=== PATIENT | male | born 1950 | race Caucasian/White ===

== ENCOUNTER 2017-05-20 19:07 | Inpatient (IN) | payer OTHER ==
[~2017-05-20] VITALS: Ht 175.3 cm; Wt 68.9 kg
[~2017-05-20 19:07] MED LIST: ATORVASTATIN CA40 MG PO; DILANTIN100 M1 PO; DILANTIN100 MG PO; Ecotrin PO; HEPARIN 2525000 UNI1 IV; LISINOPRIL10 MG PO; LOPRESSOR 25MG25 MG PO; NITROSTAT 0.4MG1 BO2 SL; Nitro-Bid TOP; PLAVIX 75MG TAB75 MG PO
--- NOTE | 2017-05-20 19:23 | ED SYNCOPE COMPLAINT ---
History of Present Illness General Chief Complaint: General Adult Stated Complaint: BIBA FALL W ?SEIZURE Source: patient, old records, EMS Exam Limitations: confusion Vital Signs & Intake/Output Vital Signs & Intake/Output Vital Signs Date Time Temp Pulse Resp B/P B/P Pulse O2 O2 Flow FiO2 Mean Ox Delivery Rate 05/20 1930 93 Nasal 2.0L Cannula 05/20 1911 99.0 105 18 144/78 Allergies Coded Allergies: NO KNOWN ALLERGIES (04/22/14) Reconcile Medications Atorvastatin Calcium (Lipitor) 40 MG TABLET 1 TAB PO DAILY CHOLESTROL Clopidogrel Bisulfate (Plavix) 75 MG TABLET 1 TAB PO DAILY ACS [Ecotrin] 325 MG PO DAILY [facility] Heparin (Heparin-1/2NS 25,000 Units/500) 25,000 UNIT/500 ML IV.SOLN 25,000 UNIT IV Q24H ACS Start infusion @ 12 units/Kg/hour ( max dose 1000 units) adjust infusion rate to keep aPTT 1.5-2 times control (usually 50-70) Lisinopril 10 MG TABLET 1 TAB PO DAILY PRN BLOOD PRESSURE Metoprolol Tartrate (Lopressor) 25 MG TABLET 1 TAB PO BID BLOOD PRESSURE [Nitro-Bid] 1 GM TOP Q6 Nitroglycerin (Nitrostat 0.4MG S\\L Tab) 0.3 MG TAB.SUBL 0.4 MG SL Q 5 MINUTES X 3 DOSE PRN PAIN 4-10 OR RESP RATE > 20 PHENYTOIN SODIUM EXTENDED (Dilantin) 100 MG CAPSULE 200 MG PO QAM SEIZURES ( Reported) NEEDS DOSE AFTER PROCEDURE, CAN NOT TAKE ON EMPTY STOMACH PHENYTOIN SODIUM EXTENDED (Dilantin) 100 MG CAPSULE 100 MG PO QPM SEIZURES ( Reported) Triage Note: PT BIBA FROM HOME. PER EMS PT'S DAUGHTER TAKLED TO PT ON THE PHONE AND HE SEEMED "OUT OF IT" TO HER, AND HE ADMITTED TO HER THAT HE FELL, SO SHE CALLED 911. PT NOTED TO HAVE BLOOD ON LIP, STATES HE BIT HIS TONGUE. PT HAS HX SEIZURE. IS AOX3, ON 2L O2 AT THIS TIME. REPORTS LOW BACK PAIN 10/10. DOES NOT RECALL EVENTS OF FALL. SLOW SPEECH. EQUAL HAND GRASPS, NO FACIAL DROOP NOTED Triage Nurses Notes Reviewed? yes HPI: Patient's daughter called him this evening and found him to be confused. Patient told her that he had fallen. She went over to see him and he is still confused with evidence of a tongue laceration. Patient does have a seizure disorder. His last seizure was approximately 30 years ago. Patient remembers watching TV this morning. He does not know if he ate breakfast or lunch. The next thing he remembers is waking up on the living room floor. Patient has no recollection of how long he had been on the floor. Patient denies any chest pain or palpitations however he does not remember falling. Patient is currently complaining of pain to his right flank as well as shortness of breath. The pain in his right flank is sharp and increased with any movement. There is no radiation. He rates the pain as severe on the pain scale. He denies any coughing. He denies any orthopnea. He denies any headache or blurry vision. There is no nausea or vomiting. Past History Travel History Traveled to [place] past 21 day No Medical History Any Pertinent Medical History? see below for history Neurological: seizure Cardiovascular: "heart disease" History of MRSA: No History of VRE: No History of CDIFF: No Surgical History Surgical History: non-contributory Psychosocial History Who do you live with Patient/Self Services at Home None What is your primary language Uzbek Tobacco Use: Never used ETOH Use: denies use Illicit Drug Use: denies illicit drug use Family History Family History, If Any: MOTHER, ; Cause: Unknown and unspecified causes of morbidity. FATHER (Hypertension). . Hx Contributory? No Review of Systems Review of Systems Constitutional: Reports: no symptoms. EENTM: Reports: no symptoms. Respiratory: Reports: see HPI, short of breath. Cardiovascular: Reports: no symptoms. GI: Reports: no symptoms. Genitourinary: Reports: no symptoms. Musculoskeletal: Reports: see HPI, back pain. Skin: Reports: no symptoms. Neurological/Psychological: Reports: no symptoms. All Other Systems: Reviewed and Negative Physical Exam Physical Exam General Appearance: well developed/nourished, alert, awake, anxious, moderate distress Head: atraumatic, normal appearance Eyes: Bilateral: PERRL, EOMI. Ears, Nose, Throat: tongue laceration, no longer bleeding Neck: normal inspection, supple, full range of motion, no midline tenderness Respiratory: normal breath sounds, chest non-tender, no respiratory distress, lungs clear Cardiovascular: regular rate/rhythm, normal peripheral pulses Gastrointestinal: normal bowel sounds, soft, non-tender, no organomegaly Back: no vertebral tenderness, tender to right flank, no bruising. Extremities: normal inspection, normal capillary refill, normal range of motion, no edema, pelvis stable, full rom of both hips Psychiatric: awake, alert, oriented x 3, but does not know meds, pharmacy or doctor's name. Cranial Nerves: normal hearing, normal speech, PERRL Coordination/Gait: normal finger to nose Motor/Sensory: no motor/sensory deficits Skin: intact, normal color, warm/dry Core Measures ACS in differential dx? Yes CVA/TIA Diagnosis: No Sepsis Present: No Sepsis Focused Exam Completed? No Progress Differential Diagnosis: AMI, drug induced syncope, orthostatic syncope, other valvular disease, seizure, vasodepressor syncope Plan of Care: Orders Procedure Date/time Status PARTIAL THROMBOPLASTIN TIME 05/20 1921 Complete PROTHROMBIN TIME 05/20 1921 Complete Telemetry/Prepress Stripper 05/20 1920 Active URINALYSIS 05/20 1920 Complete TROPONIN LEVEL 05/20 1920 Complete DILANTIN 05/20 1920 Complete COMPREHENSIVE METABOLIC PANEL 05/20 1920 Complete CREATINE PHOSPHOKINASE 05/20 1920 Complete CBC WITHOUT DIFFERENTIAL 05/20 1920 Complete EKG 05/20 1920 Active Laboratory Tests 05/20/171953: Urine Color YEL, Urine Clarity HAZY H, Urine pH 5.5, Ur Specific [place] >= 1.030, Urine Protein 30 H, Urine Ketones NEG, Urine Nitrite NEG, Urine Bilirubin NEG, Urine Urobilinogen 0.2, Ur Leukocyte Esterase NEG, Ur Microscopic SEDIMENT EXAMINED, Urine RBC 3-5, Urine WBC RARE, Ur Epithelial Cells FEW, Urine Crystals MIXED CRYSTALS, Granular Casts RARE H, Urine Hemoglobin SMALL H, Urine Glucose NEG 05/20/171941: Anion Gap 14, Estimated GFR > 60, BUN/Creatinine Ratio 17.5, Glucose 142 H, Calcium 9.2, Total Bilirubin 0.5, AST 45, ALT 52, Alkaline Phosphatase 83, Creatine Kinase 538 H, Troponin I 0.04, Total Protein 6.9, Albumin 4.3, Globulin 2.6, Albumin/Globulin Ratio 1.7, PT 11.1, INR 1.06, APTT 27, CBC w Diff NO MAN DIFF REQ, RBC 5.14, MCV 90.4, MCH 29.4, RDW 14.2, MPV 8.1, Gran % 82.8 H , Lymphocytes % 9.3 L, Monocytes % 7.8, Eosinophils % 0, Basophils % 0.1, Absolute Granulocytes 13.1 H, Absolute Lymphocytes 1.5, Absolute Monocytes 1.2 H, Absolute Eosinophils 0, Absolute Basophils 0, PUBS MCHC 32.5 L, Phenytoin 4.6 L Diagnostic Imaging: Viewed by Me: Radiology Read, CT Scan. Discussed w/RAD: Radiology Read, CT Scan. Radiology Impression: PATIENT: BRENDA FOSTER PRESENT AGE: 67 PATIENT ACCOUNT NO: [id number] : 48 LOCATION: [facility] ([facility]) ORDERING PHYSICIAN: Ector August MD SERVICE DATE: 05/20/17 EXAM TYPE: CAT - CT CERV SPINE WO IV CONTRAST; CT HEAD WO IV CONTRAST EXAMINATION: NONCONTRAST HEAD CT NONCONTRAST CERVICAL SPINE CT INDICATION INFORMATION: Fall. Confusion. COMPARISON: None TECHNIQUE: Separate noncontrast CT examinations of the head and cervical spine were performed. Coronal and sagittal images were created for each examination at the technologist workstation. DLP: 1019 mGy-cm FINDINGS: Head: There is no evidence of acute intracranial hemorrhage or territorial infarction. No abnormal mass effect or midline shift is seen. Torres to white matter differentiation is well preserved. No extra-axial fluid collections are identified. No hydrocephalus. Proportional prominence of the ventricles and sulcal spaces is consistent with mild volume loss. Patchy periventricular and deep white matter hypoattenuation is consistent with mild small vessel ischemic changes. Chronic lacunar infarct in the right basal ganglia. The osseous structures and soft tissues are normal. Mild opacification in the frontal sinuses. The mastoid air cells and visualized portions of the paranasal sinuses are otherwise well aerated. Cervical spine: There is anatomic alignment of the vertebral bodies and posterior elements. The atlantoaxial and atlantooccipital articulations are intact. Vertebral body heights are maintained. There is multilevel intervertebral disc space narrowing with endplate osteophyte formation and facet arthropathy. This is most prominent at C6-C7 with disc space narrowing and osteophyte formation. No evidence of acute fracture. No prevertebral soft tissue swelling. There is severe centrilobular emphysema at the lung apices. Prevertebral soft tissue gas at the C7 level is likely degenerative in nature, associated with the disc space. The thyroid gland is unremarkable. IMPRESSION: 1. No acute intracranial findings. Mild volume loss with small vessel ischemic changes. 2. No acute fracture or malalignment of the cervical spine. Mild degenerative changes. DICTATED BY: Neftali Kumar MD DATE/TIME DICTATED:05/20/172011 ASIAN STUDIES PROFESSOR:ROJELIO DATE/TIME TRANSCRIBED:05/20/172011 CONFIDENTIAL, DO NOT COPY WITHOUT APPROPRIATE AUTHORIZATION. <Electronically signed in Other Vendor System> SIGNED BY: Neftali Kumar MD 05/20/172019, PATIENT: BRENDA FOSTER PRESENT AGE: 67 PATIENT ACCOUNT NO: [id number] : 48 LOCATION: [facility] ([facility]) ORDERING PHYSICIAN: Ector August MD SERVICE DATE: 05/20/17 EXAM TYPE: CAT - CT ABD & PELVIS W IV CONTRAST; CT CHEST W IV CONTRAST EXAMINATION: CT CHEST, ABDOMEN AND PELVIS WITH CONTRAST CLINICAL INFORMATION: Pain following trauma. COMPARISON: None. TECHNIQUE: Contiguous axial thin section helical images of the chest, abdomen and pelvis were performed following the 95 mL of intravenous Optiray 320. The data set was reformatted in the coronal and sagittal planes and reviewed on an independent workstation. DLP: 453 mGy-cm. FINDINGS: The heart is of normal size. There is no pericardial effusion. There is neither mediastinal, hilar nor axillary lymphadenopathy. There are no chest wall masses. Review of lung windows demonstrates that there are neither pleural effusions nor pneumothoraces. There is dependent bibasilar atelectasis. There is patchy groundglass opacification and consolidation within the inferior segment of the lingula. There are no pulmonary parenchymal nodules. There are moderate manifestations of emphysema. The liver is of normal size and attenuation without focal lesions nor intrahepatic biliary ductal dilation. There is a calculus within the gallbladder lumen. There is no wall thickening or discernible pericholecystic fluid. The spleen and pancreas are unremarkable. There is an approximately 2 cm mass within the right adrenal gland body. There is an approximately 2.2 cm mass within the body of the left adrenal gland. Both kidneys are of normal size and attenuation without hydronephrosis or nephrolithiasis. Following the administration of IV contrast, prompt symmetric nephrograms are displayed. There is no abdominal free fluid. There is neither mesenteric nor retroperitoneal lymphadenopathy. Normal opacified loops of small and large bowel are identified. A normal appendix is identified. There is no pelvic free fluid. The urinary bladder is unremarkable. There is neither pelvic nor inguinal lymphadenopathy. Bone windows: Neither sclerotic nor lytic bone lesions are identified. There is height loss and mild anterior wedging to the T7 -T9 vertebral bodies. This is age indeterminant. IMPRESSION: Mild anterior wedging and vertebral body height loss to the T7-T9 vertebral bodies. This is age indeterminant, though likely chronic. Correlate with physical exam as this could correspond to an acute injury. Opacification within the inferior segment of the lingula. This is nonspecific, but may be chronic. Follow-up is recommended to assure resolution or stability of this appearance. No evidence for acute intrathoracic, abdominal nor pelvic injury. Cholelithiasis without evidence of cholecystitis. Bilateral adrenal masses. Consider correlation with MRI for further tissue characterization. Emphysema. DICTATED BY: Lee Acevedo MD DATE/TIME DICTATED:05/20/172102 ASIAN STUDIES PROFESSOR:ROJELIO DATE/TIME TRANSCRIBED:05/20/172102 CONFIDENTIAL, DO NOT COPY WITHOUT APPROPRIATE AUTHORIZATION. <Electronically signed in Other Vendor System> SIGNED BY: Lee Acevedo MD 05/20/172112 CXR Impression: PATIENT: BRENDA FOSTER PRESENT AGE : 67 PATIENT ACCOUNT NO: [id number] : 48 LOCATION: [facility] ([facility]) ORDERING PHYSICIAN: Ector August MD SERVICE DATE: 05/20/17 EXAM TYPE: RAD - XRY-PORTABLE CHEST XRAY EXAMINATION: CHEST 1 VIEW CLINICAL INFORMATION: Shortness of breath. Pain after fall. COMPARISON: 04/22/2014. TECHNIQUE: An AP view of the chest is provided. FINDINGS: The cardiac silhouette is not enlarged. The mediastinal and hilar contours are unremarkable. There are neither pleural effusions nor pneumothoraces. There are no consolidations. There is mild coarsening to interstitial lung markings. The osseous structures are unremarkable. IMPRESSION: No acute airspace disease. Mild age indeterminant coarsening to interstitial lung markings. DICTATED BY: Lee Acevedo MD DATE/ TIME DICTATED:05/20/172022 ASIAN STUDIES PROFESSOR:ROJELIO DATE/TIME TRANSCRIBED: 01/22/18 / 2023 CONFIDENTIAL, DO NOT COPY WITHOUT APPROPRIATE AUTHORIZATION. < Electronically signed in Other Vendor System> SIGNED BY: Lee Acevedo MD 05/20/172027 Pre-Hospital EKG: NSR, nonspecific ST T wave chg Initial ED EKG: NSR, nonspecific ST T wave chg Prior EKG: unchanged Rhythm Strip: normal sinus rhythm Departure Departure Disposition: STILL A PATIENT Condition: Fair Clinical Impression Primary Impression: Seizure Secondary Impressions: Rhabdomyolysis Referrals: Oliver Harrison MD (PCP/Family) Departure Forms: Customer Survey General Discharge Information Admission Note [facility] Documentation of Exam: Documentation of any treatments & extenuating circumstances including Concerns Regarding Discharge (functional status, medication knowledge or non-compliance, living conditions, etc.) that warrant an admission rather than observation: [IV FLUIDS, NEUROLOGY CONSULTATION, SERIAL ENZYMES, TELE MONITOIRNG, CARDIOLOGY CONSULTATION]
[2017-05-20 19:58] LABS: ABSOLUTE BASOPHIL COUNT 0 /CUMM (0.0-0.2); ABSOLUTE EOSINOPHIL COUNT 0 /CUMM (0.0-0.7); ABSOLUTE GRANULOCYTE CT 13.1 /CUMM (1.4-6.5); ABSOLUTE LYMPH COUNT 1.5 /CUMM (1.2-3.4); ABSOLUTE MONOCYTE COUNT 1.2 /CUMM (0.10-0.60); BASOPHIL % 0.1 % (0.0-2.0); EOSINOPHIL % 0 % (0-5); GRANULOCYTE % 82.8 % (42.2-75.2); HEMATOCRIT 46.4 % (42-52); MEAN CORPUSCULAR HGB 29.4 PG (27.0-31.0); MEAN CORPUSCULAR HGB CONC 32.5 G/DL (33.0-37.0); MEAN CORPUSCULAR VOLUME 90.4 FL (80.0-94.0); MEAN PLATELET VOLUME 8.1 FL (7.4-10.4); PLATELET COUNT 198 /CUMM (130-400); RBC DISTRIBUTION WIDTH 14.2 % (11.5-14.5); RED BLOOD CELL CT 5.14 /CUMM (4.70-6.10); WHITE BLOOD CELL COUNT 15.8 /CUMM (4.8-10.8)
[2017-05-20 20:08] LABS: PT 11.1 SEC (9.4-12.5); PTT 27 SEC (25-37)
--- NOTE | 2017-05-20 20:20 | CT SCAN REPORT ---
EXAMINATION: NONCONTRAST HEAD CT NONCONTRAST CERVICAL SPINE CT INDICATION INFORMATION: Fall. Confusion. COMPARISON: None TECHNIQUE: Separate noncontrast CT examinations of the head and cervical spine were performed. Coronal and sagittal images were created for each examination at the technologist workstation. DLP: 1019 mGy-cm FINDINGS: Head: There is no evidence of acute intracranial hemorrhage or territorial infarction. No abnormal mass effect or midline shift is seen. Torres to white matter differentiation is well preserved. No extra-axial fluid collections are identified. No hydrocephalus. Proportional prominence of the ventricles and sulcal spaces is consistent with mild volume loss. Patchy periventricular and deep white matter hypoattenuation is consistent with mild small vessel ischemic changes. Chronic lacunar infarct in the right basal ganglia. The osseous structures and soft tissues are normal. Mild opacification in the frontal sinuses. The mastoid air cells and visualized portions of the paranasal sinuses are otherwise well aerated. Cervical spine: There is anatomic alignment of the vertebral bodies and posterior elements. The atlantoaxial and atlantooccipital articulations are intact. Vertebral body heights are maintained. There is multilevel intervertebral disc space narrowing with endplate osteophyte formation and facet arthropathy. This is most prominent at C6-C7 with disc space narrowing and osteophyte formation. No evidence of acute fracture. No prevertebral soft tissue swelling. There is severe centrilobular emphysema at the lung apices. Prevertebral soft tissue gas at the C7 level is likely degenerative in nature, associated with the disc space. The thyroid gland is unremarkable. IMPRESSION: 1. No acute intracranial findings. Mild volume loss with small vessel ischemic changes. 2. No acute fracture or malalignment of the cervical spine. Mild degenerative changes.
--- NOTE | 2017-05-20 20:28 | RADIOLOGY REPORT ---
EXAMINATION: CHEST 1 VIEW CLINICAL INFORMATION: Shortness of breath. Pain after fall. COMPARISON: 04/22/2014. TECHNIQUE: An AP view of the chest is provided. FINDINGS: The cardiac silhouette is not enlarged. The mediastinal and hilar contours are unremarkable. There are neither pleural effusions nor pneumothoraces. There are no consolidations. There is mild coarsening to interstitial lung markings. The osseous structures are unremarkable. IMPRESSION: No acute airspace disease. Mild age indeterminant coarsening to interstitial lung markings.
--- NOTE | 2017-05-20 21:13 | CT SCAN REPORT ---
EXAMINATION: CT CHEST, ABDOMEN AND PELVIS WITH CONTRAST CLINICAL INFORMATION: Pain following trauma. COMPARISON: None. TECHNIQUE: Contiguous axial thin section helical images of the chest, abdomen and pelvis were performed following the 95 mL of intravenous Optiray 320. The data set was reformatted in the coronal and sagittal planes and reviewed on an independent workstation. DLP: 453 mGy-cm. FINDINGS: The heart is of normal size. There is no pericardial effusion. There is neither mediastinal, hilar nor axillary lymphadenopathy. There are no chest wall masses. Review of lung windows demonstrates that there are neither pleural effusions nor pneumothoraces. There is dependent bibasilar atelectasis. There is patchy groundglass opacification and consolidation within the inferior segment of the lingula. There are no pulmonary parenchymal nodules. There are moderate manifestations of emphysema. The liver is of normal size and attenuation without focal lesions nor intrahepatic biliary ductal dilation. There is a calculus within the gallbladder lumen. There is no wall thickening or discernible pericholecystic fluid. The spleen and pancreas are unremarkable. There is an approximately 2 cm mass within the right adrenal gland body. There is an approximately 2.2 cm mass within the body of the left adrenal gland. Both kidneys are of normal size and attenuation without hydronephrosis or nephrolithiasis. Following the administration of IV contrast, prompt symmetric nephrograms are displayed. There is no abdominal free fluid. There is neither mesenteric nor retroperitoneal lymphadenopathy. Normal opacified loops of small and large bowel are identified. A normal appendix is identified. There is no pelvic free fluid. The urinary bladder is unremarkable. There is neither pelvic nor inguinal lymphadenopathy. Bone windows: Neither sclerotic nor lytic bone lesions are identified. There is height loss and mild anterior wedging to the T7-T9 vertebral bodies. This is age indeterminant. IMPRESSION: Mild anterior wedging and vertebral body height loss to the T7-T9 vertebral bodies. This is age indeterminant, though likely chronic. Correlate with physical exam as this could correspond to an acute injury. Opacification within the inferior segment of the lingula. This is nonspecific, but may be chronic. Follow-up is recommended to assure resolution or stability of this appearance. No evidence for acute intrathoracic, abdominal nor pelvic injury. Cholelithiasis without evidence of cholecystitis. Bilateral adrenal masses. Consider correlation with MRI for further tissue characterization. Emphysema.
--- NOTE | 2017-05-21 02:00 | History & Physical ---
Abel ARSHAD,[facility] 05/21/17 0159: General Information and HPI MD Statement: I have seen and personally examined BRENDA FOSTER and documented this H&P. The patient is a 67 year old M who presented with a patient stated chief complaint of [confusion]. Source of Information: patient, family Exam Limitations: confusion History of Present Illness: Mr. Foster is a 67 y/o gentleman with past medical history of seizure disorder noncompliant with dilantin and NSTEMI (2013) s/p stent x3, was brought in by his daughter for evaluation of confusion. Most of the history was obtained from the daughter, as the patient does not recall any events from yesterday. According to the daughter, she calls her father every day, yesterday she called him around 4 PM but the patient did not cook pickled meat. Called again after 10 minutes, and she is felt her father is slurring and he is confused. She went to see her father and found out that he has sustained a fall, had bit his tongue with blood on his lips and was confused so she brought him to the ER. The patient only recalls washing dishes this morning and later found himself on the floor, does not recall any seizure-like activity or bowel or bladder incontinence. Currently reports severe back pain and increased frequency of sensation to void but hasn't been able to void much urine. Patient lives alone at home and pretty active at baseline. He was diagnosed with seizure disorder during his 30s and has been on Dilantin since but according to the daughter patient is noncompliant with his medications. 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 FATHER (Hypertension). . Psychosocial History Services at Home: None Smoking Status: Current Everyday Smoker ETOH Use: denies use, occasional use Illicit Drug Use: denies illicit drug use Functional Ability ADLs Independent: dressing, eating, toileting, bathing. Ambulation: independent IADLs Independent: shopping, housework, finances, food prep, telephone, transportation , medication admin. Review of Systems Review of Systems Constitutional: Reports: no symptoms. EENTM: Reports: no symptoms. Cardiovascular: Reports: no symptoms. Respiratory: Reports: no symptoms. GI: Reports: no symptoms. Genitourinary: Reports: frequency. Musculoskeletal: Reports: back pain. Skin: Reports: no symptoms. Neurological/Psychological: Reports: no symptoms. Hematologic/Endocrine: Reports: no symptoms. Immunologic/Allergic: Reports: no symptoms. All Other Systems: Reviewed and Negative Exam & Diagnostic Data Last 24 Hrs of Vital Signs/I&O Vital Signs Date Time Temp Pulse Resp B/P B/P Pulse O2 O2 Flow FiO2 Mean Ox Delivery Rate 05/21 0800 Nasal 3.0L Cannula 05/21 0739 97.6 68 18 126/74 92 Nasal 3.0L Cannula 05/21 0323 98.2 69 18 142/80 90 Nasal 3.0L Cannula 05/21 0319 90 Nasal 3.0L Cannula 05/21 0205 98.0 78 16 149/78 93 Nasal 3.0L Cannula 05/20 2301 97.6 78 20 121/63 95 Nasal 2.0L Cannula 05/20 2135 99.1 71 16 130/74 94 Room Air 05/20 1931 93 Nasal 2.0L Cannula 05/20 1912 99.0 105 18 144/78 Intake & Output 05/21 1600 05/21 0800 05/21 0000 Intake Total 300 250 Output Total 500 Balance 300 -250 Intake, IV 300 250 Output, Urine 500 Patient 153 lb 160 lb Weight Weight Bed scale Reported by Patient Measurement Method Physical Exam General Appearance Alert, Cooperative, Oriented x 2 Skin No Rashes, No Breakdown HEENT PERRLA, EOMI, Bump on the head, Laceration on the tongue Cardiovascular Regular Rate, Normal S1, Normal S2 Lungs Clear to Auscultation Abdomen Normal Bowel Sounds, Soft, No Tenderness Neurological Strength at 5/5 X4 Ext, Normal Tone, Sensation Intact, Cranial Nerves 3-12 NL, Brisk reflexes Extremities No Clubbing, No Cyanosis, Swelling and erythema of right elbow and right knee joint, no tenderness to palpation Last 24 Hrs of Labs/Placido: Laboratory Tests 05/20/171953: Urine Opiates Screen < 100.00, Methadone Screen < 40, Barbiturate Screen < 60, Ur Phencyclidine Scrn < 6.00, Amphetamines Screen < 100, U Benzodiazepines Scrn < 85, Urine Cocaine Screen < 50, Urine Cannabis Screen < 5.00, Urine Color YEL, Urine Clarity HAZY H, Urine pH 5.5, Ur Specific Gladys >= 1.030, Urine Protein 30 H, Urine Ketones NEG, Urine Nitrite NEG, Urine Bilirubin NEG, Urine Urobilinogen 0.2, Ur Leukocyte Esterase NEG, Ur Microscopic SEDIMENT EXAMINED, Urine RBC 3-5, Urine WBC RARE, Ur Epithelial Cells FEW, Urine Crystals MIXED CRYSTALS, Granular Casts RARE H, Urine Hemoglobin SMALL H, Urine Glucose NEG 05/20/171941: Anion Gap 14, Estimated GFR > 60, BUN/Creatinine Ratio 17.5, Glucose 142 H, Calcium 9.2, Total Bilirubin 0.5, AST 45, ALT 52, Alkaline Phosphatase 83, Creatine Kinase 538 H, Troponin I 0.04, Total Protein 6.9, Albumin 4.3, Globulin 2.6, Albumin/Globulin Ratio 1.7, Prolactin 12.0, PT 11.1, INR 1.06, APTT 27, CBC w Diff NO MAN DIFF REQ, RBC 5.14, MCV 90.4, MCH 29.4, RDW 14.2, MPV 8.1, Gran % 82.8 H, Lymphocytes % 9.3 L, Monocytes % 7.8, Eosinophils % 0, Basophils % 0.1, Absolute Granulocytes 13.1 H, Absolute Lymphocytes 1.5, Absolute Monocytes 1.2 H, Absolute Eosinophils 0, Absolute Basophils 0, PUBS MCHC 32.5 L, Phenytoin 4.6 L Microbiology 05/21 705 BLOOD: Blood Culture - RECD 05/21 703 URINE ROUT: Urine Culture - ORD 05/21 703 LOWER RESP: Respiratory Culture - ORD 05/21 703 LOWER RESP: Gram Stain - ORD 05/21 05 BLOOD: Blood Culture - ORD Diagnostic Data EKG Results Sinus rhythm CXR Results no acute airspace disease, mild coarsening to interstitial lung markings. Other Results CT CERV SPINE WO IV CONTRAST; CT HEAD WO IV CONTRAST IMPRESSION: 1. No acute intracranial findings. Mild volume loss with small vessel ischemic changes. 2. No acute fracture or malalignment of the cervical spine. Mild degenerative changes. CT ABD & PELVIS W IV CONTRAST; CT CHEST W IV CONTRAST IMPRESSION: Mild anterior wedging and vertebral body height loss to the T7-T9 vertebral bodies. This is age indeterminant, though likely chronic. Correlate with physical exam as this could correspond to an acute injury. Opacification within the inferior segment of the lingula. This is nonspecific, but may be chronic. Follow-up is recommended to assure resolution or stability of this appearance. No evidence for acute intrathoracic, abdominal nor pelvic injury. Cholelithiasis without evidence of cholecystitis. Bilateral adrenal masses. Consider correlation with MRI for further tissue characterization. Emphysema. Assessment/Plan Assessment: Mr. Foster is a 67 y/o gentleman with past medical history of seizure disorder noncompliant with dilantin and NSTEMI (2013) s/p stent x3, was brought in by his daughter for evaluation of confusion. A/P; 1. Seizure episode 2/2 to medication noncompliance/ postictal state; - Admit to telemetry floor - Neurochecks every 2 hours - Neuro Consult; rule out stroke - Nothing by mouth pending swallow evaluation - Gentle IV fluids - CK level of 538, will continue to monitor. - Continue aspirin and statin - We will do MRI and EEG - Phenytoin level is low; Continue IV Dilantin - Trops and EKG to r/o ACS - Cardio consult - Echocardiogram 2. Back pain status post fall; - Mild anterior wedging and vertebral body height loss to T7-9 vertebral bodies ?acute vs chronic. - Pain management with IV Tylenol and Lidoderm patch - MRI of the back to rule out fracture if patient continues to have back pain. - PT consult 3. Aspiration pneumonia; - CT chest shows opacification within inferior segment of lingula - IV Unasyn - Nothing by mouth pending swallow evaluation 4. History of coronary artery disease status post stent placement; - Continue home medications. DVT prophylaxis; subcutaneous Lovenox and Alps Patient is full code As Ranked By This Provider Problem List: 1. Seizure disorder 2. Rhabdomyolysis Core Measures/Misc (01/13) Acute Coronary Syndrome ACS Diagnosis: No Congestive Heart Failure Congestive Heart Failure Diagnosis No Cerebrovascular Accident CVA/TIA Diagnosis: No VTE (View Protocol) VTE Risk Factors Smoker No Mechanical VTE Prophylaxis d/t N/A MechProphylax Ordered No VTE Pharm Prophylaxis d/t NA PharmProphylax ordered Sepsis (View protocol) Sepsis Present: No Loc ARSHAD, [facility] 05/21/17 0538: General Information and HPI Allergies/Medications Home Med list Atorvastatin Calcium (Lipitor) 40 MG TABLET 1 TAB PO DAILY CHOLESTEROL [Ecotrin] 325 MG PO DAILY HEART HEALTH Lisinopril 20 MG TABLET 1 TAB PO DAILY HTN Metoprolol Tartrate (Lopressor) 50 MG TABLET 0.5 TAB PO BID HTN Phenytoin (Dilantin) 100 MG CAPSULE 1 CAP PO BID SEIZURE (Reported) Attending MD Review Statement Attending Statement Attending MD Statement: examined this patient, discuss w/resident/PA/CARD DECORATOR, agreed w/resident/PA/CARD DECORATOR, discussed with family, reviewed images, amended to note Attending Assessment/Plan: 67 yo M smoker with h/o seizure disorder noncompliant with dilantin, NSTEMI ( 2013) s/p stent x3, is brought in for evaluation of confusion. Patient lives alone, while his daughters live a short distance away. He is independent with his ADLs. Daughter called patient this evening to check on him. She found that his speech was slurred and he was confused. Patient reported that he had sustained a fall. When daughter went to see him, he continued to be confused and also had evidence of dried blood on his lips. No facial droop or unilateral paresis noted. She called 911. Patient remembers watching TV last night, waking up this morning and having coffee. But the next thing he remembers is waking up on the floor this evening. He does not know how he fell and how long he was on the floor. He c/o back pain and reports urinary frequency. According to daughter, patient is leaning towards his left side, had some drooling from left angle of mouth and involuntary, isolated left lower extremity tremors since ER arrival. Vitals: Tmax 99, HR 60-70's, BP 149/78, sats 95% on 2L. Exam: awake, confused, oriented to place and person but not to time/ date. Tongue right small laceration with lip edema+. Dry mucous membranes. Chest b/l clear, Heart S1S2 regular, Abd soft, NT. Neuro: PERRL, cranial nerves intact except for slight left facial droop, no pronator drift, power 5/5, sensation intact, plantars downgoing, reflexes 2+, cerebellar signs intact. Back: lower thoracic spine tenderness+. Labs: WBC 15.8, H/H 15.1/46.4, glucose 142, CK 538, trop neg, UA neg, Utox neg. Dilantin levels 4.6 (low). CT head/cervical spine no acute findings, small vessel ischemic changes. CXR: no acute airspace disease, mild coarsening to interstitial lung markings. CT CAP: mild anterior wedging and vertebral body height loss to T7-9 vertebral bodies ?acute vs chronic; opacification within inferior segment of lingula, cholelithiasis, bilateral adrenal massess, emphysema. EKG: sins rhythm. Assessment and plan: 1. Unresponsive episode, ?syncope 2. Seizure 2/2 med noncompliance 3. Subtherapeutic dilantin levels 4. Post-ictal state with ?Javier's paralysis 5. Rule out stroke/ TIA 6. Mild rhabdomyolysis in the setting of seizure 7. Hypoxia, Aspiration pneumonia (CT suggestive of lingular consolidation) 8. Back pain s/p fall, rule out thoracic compression fracture 9. History of CAD s/p stent - Admit to Telemetry - Neurochecks Q2 - Check orthostats - Monitor for arrhythmias - Rule out ACS, obtain Echo and Cardio consult - Loading dose of dilantin given in ER, continue IV dilantin 100 BID - EEG in AM - Obtain Neuro consult - MRI brain on Saturday - Continue aspirin and metoprolol - NPO, aspiration and fall precautions - Swallow eval in AM - Aggressive IV fluid hydration - Trend CPK, renal functions - Avoid sedative medications or narcotics - Hold statins and lisinopril for now - Panculture, give TRC nebs, incentive spirometry - Empirically cover with Unasyn for aspiration pneumonia. - Pain management with local lidoderm patch, IV tylenol as needed, avoid opiates - PT consult - If back pain persists, consider MRI thoracic spine to assess for compression fracture - Increased urinary frequency but no evidence of UTI, discontinue mann in AM - Smoking cessation counseling and medication compliance to be reinforced prior to discharge DVT ppx Lovenox. Full code. Fei Quinones MD 05/21/17 1036: Resident Review Statement Resident Statement: examined this patient, discussed with internal control specialist, agreed with internal control specialist Other Findings: This is a 67 yo male with PMH of D status post and NSTEMI in 2014 and stenting, seizure disorder diagnosed 30 years ago, who was brought in by ambulance as daughter noted that he was significantly altered from his baseline. Per patient he remembers making breakfast around 10 AM in his kitchen and subsequently he has no memory until he woke up and passed out on the floor of his living room. In the interim he says he vaguely remembers waking up on the floor and feeling significantly fatigued and wanted to sleep but that he could not get up because of severe back pain. Daughter was in the room some mostly history is obtained from her. She states that she usually calls her father around 5 PM and when he did not cook pickled meat she got worried and called again. On a second radiopaque tablet but she noted significant slurring of his words and inadequate response or questions. She immediately drove over and noted that he seemed pale, confused, with blood in his tongue and mouth, and altered from his baseline. Patient denies any loss of bladder or bowel function, no chest pain, no shortness of breath, no dizziness, no palpitations, no numbness, and no weakness but he does endorse fatigue, biting his tongue and back pain. He is prescribed Dilantin for seizures, but per daughter he is not very compliant. Supposedly his last seizure was about a year ago, but prior to that he was almost 30 years ago. Unknown etiology for seizures. Notably, his daughter also has similar onset of seizures at age 30 with no underlying etiology. physical exam: HEENT: Pupils equal and reactive. EOMI. Cranial nerves in tact. He has erytheamtous swollen area in back of head Cardiovascular: Systolic murmur present. Skin: Several bruises present in bilat elbow, r. knee. Respiratory: Pt did not want to sit forward as he c/o back pain. Lateral lung da silva CTA GI: BSX4, No tenderness on palpation. EXT: he has strength, ROM and sensation WNL. He did have sudden shaking of leg on his LLE two episodes for 5-8 seconds each time. Reflexes very brisk in bilat LE and UE. ASSESSMENT: This is a 67-year-old male with past medical history significant for an STEMI status post catheterization and stent placement in 2013, seizure disorder with noncompliance of medication regimen, hypertension, hyperlipidemia, who is brought in by daughter for chief complaint of altered mental status. Given history of seizure disorder, noncompliance of medication, loss of consciousness, confused state, and biting of tongue there is concern for seizure in this patient. Other DDX includes syncope, stroke vs TIA. PLAN: 1. AMS: Note that patient had subtherapeutic Dilantin level, prolactin of 12. He had 5/5 strength iand ROM in all extremities which suggests against Javier's paralysis. * Neuro consult * EEG * Nothing by mouth until swallow eval * Echocardiogram * Brain MRI * Trops and EKG * PT eval * OT eval * Con't ASA * Con't Statin * Please follow up with neurologist to re-eval his Dilantin dose. Daughter has list that states 100mg BID, but his prev med rec suggests 200 am and 100 pm. Have started 100MG PO BID. 2. Back pain: Pt had unwitnessed fall and was unconscious for unknown amount of time. CT concerning for wedging of t7-t9. No obvious evidence of fracture but cannot rule out. * lidoderm patch * IV tylenol * PT * Consider MRI if no improvement 3. Leukocytosis: DDX: seizure, PNA, Cholelithiasis . CT suggestive of lingular consolidation and pt does have cough. He does have significant smoking hx. Satting 90-95 on RA. CXR suggestive of emphysema.He has remained afebrile in hospital. Has been in usual health prior to today. No abdominal pain, or Moore. * Monitor CBC * Unasyn empirically. Titrate as necessary * Flu swab * panculture 4. Smoking: Counseled cessation. 5. Inicidental adrenal masses noted in CT 6.
[2017-05-21 03:23] VITALS: BP 142/80
[2017-05-21] MEDS ORDERED: LIPITOR40 M1 PO (03:51)
[2017-05-21] MEDS ORDERED: LOPRESSOR50 M1 PO (03:51)
[2017-05-21] MEDS ORDERED: LISINOPRIL20 M1 PO (03:51)
--- NOTE | 2017-05-21 04:56 | Admission Certification ---
Admission Certification Certification Statement - As attending physician, I certify that at the time of - admission, based on clinical presentation, severity of - symptoms, need for further diagnostic testing and - therapeutic interventions, and risk of adverse outcomes - without in-hospital treatment, in my clinical assessment, - this patient requires an acute hospital stay for a minimum - of two nights or longer. I have also considered psychsocial - factors such as support system, advanced age, financial - issues, cognitive issues, and failed out-patient treatments, - past re-admission history, safety of patient, and lack of - compliance as applicable. Specific rationale supporting this admission is: Unresponsive episode, seizure disorder.
[2017-05-21 07:39] VITALS: BP 126/74
[2017-05-21 10:30] VITALS: BP 140/80
--- NOTE | 2017-05-21 11:27 | Cons- Cardiology ---
General Information and HPI Consulting Request Date of Consult: 05/21/17 Requested By: Gely ARSHAD,Fannie Ellison History of Present Illness: Lucas is a 67 year old male with a history of tobacco abuse, hypertension and coronary artery disease s/p PCI. Yesterday, this patient arose to walk to the bathroom and the next thing that he remembers is being on the ground and feeling too weak to get up and also feeling short of breath. It should be noted that he also has severe back pain. 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 She subsequently found her father confused with slurred speech. He has bitten his tongue with blood on his lips. She did not observed any seizure-like activity or bowel or bladder incontinence. At his baseline, he is active and can walk without and any chest pain, pressure, tightness, shortness of breath, lightheadedness or palpitations. He can walk at a moderate to slow rate for about 2 miles per day without problems but he has not engaged in anything vigorous. He does report frequent bruises. He unfortunately continues to smoke. His latest lipid profile is excellent with and LDL of 63, HDL of 49 and triglycerides of 100. This patient had a melanoma on his back that was resected. Recent cardiac workup included an echocardiogram that showed a normal EF of 55% with impaired LV relaxation. Trace MR and UT and noted along with mild to moderate tricupsid regurgitation. On April 23, 2014 this patient awakened naturally and noted a moderate, nonradiating, mid sternal chest pressure. He has noted some chest discomfort intermittently for two weeks prior. This discomfort was unremitting and therefore he presented to the [facility] emergency room for further evaluation where he was noted to have nonspecific ST elevation in the high lateral leads I and L, with ST depressions in the anterior and anterolateral precordial leads. Troponin was mildly elevated. The patient did receive nitroglycerin, which resolved his discomfort which lasted for approximately 6 hours before resolving. There was no associated nausea, vomiting, diaphoresis, shortness of breath, orthopnea, lightheadedness or palpitations. A cardiac catheterization was performed which showed a short, patent left main, diffuse luminal irregularities in the LAD, mild luminal irregularities in the LCX and a dominant RCA with luminal irregularities. He had a large Ramus branch which was the acute lesion with an 80% distal lesion, an 80% proximal to mid lesion and a 90% proximal stenosis. He received two 3.0 x 9mm Resolute stents proximally and a 2.75 x 8mm stent distally. An echo showed an EF of 45% with inferoapical hypokinesis. There were no significant valvular abnormalities. Allergies/Medications Allergies: Coded Allergies: NO KNOWN ALLERGIES (04/22/14) Home Med List: Atorvastatin Calcium (Lipitor) 40 MG TABLET 1 TAB PO DAILY CHOLESTEROL [Ecotrin] 325 MG PO DAILY HEART HEALTH Lisinopril 20 MG TABLET 1 TAB PO DAILY HTN Metoprolol Tartrate (Lopressor) 50 MG TABLET 0.5 TAB PO BID HTN Phenytoin (Dilantin) 100 MG CAPSULE 1 CAP PO BID SEIZURE (Reported) Review of Systems Review of Systems: Back pain Past History Travel History Traveled to [place] past 21 day No Medical History Blood Transfusion Hx: No Neurological: seizure EENT: NONE Cardiovascular: "heart disease" Respiratory: NONE Gastrointestinal: NONE Hepatic: NONE Renal: NONE Musculoskeletal: NONE Psychiatric: NONE Endocrine: NONE Blood Disorders: NONE 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 FATHER (Hypertension). . Family History Reviewed? Father: coronary artery disease prior to age 60 Psychosocial History Where Do You Live? Home Services at Home: None Smoking Status: Current Everyday Smoker ETOH Use: denies use, occasional use Illicit Drug Use: denies illicit drug use Functional Ability ADLs Independent: dressing, eating, toileting, bathing. Ambulation: independent IADLs Independent: shopping, housework, finances, food prep, telephone, transportation , medication admin. Exam & Diagnostic Data Vital Signs and I&O Vital Signs Date Time Temp Pulse Resp B/P B/P Pulse O2 O2 Flow FiO2 Mean Ox Delivery Rate 05/21 1032 68 140/80 05/21 1031 68 140/80 05/21 1030 68 140/80 05/21 0800 Nasal 3.0L Cannula 05/21 0739 97.6 68 18 126/74 92 Nasal 3.0L Cannula 05/21 0323 98.2 69 18 142/80 90 Nasal 3.0L Cannula 05/21 0319 90 Nasal 3.0L Cannula 05/21 0205 98.0 78 16 149/78 93 Nasal 3.0L Cannula 05/20 2300 97.6 78 20 121/63 95 Nasal 2.0L Cannula 05/20 2134 99.1 71 16 130/74 94 Room Air 05/20 193 93 Nasal 2.0L Cannula 05/20 1911 99.0 105 18 144/78 Intake & Output 05/21 1600 05/21 0800 05/21 0000 05/20 1600 05/20 0800 05/20 0000 Intake Total 300 250 Output Total 500 Balance 300 -250 Intake, IV 300 250 Output, Urine 500 Patient 153 lb 160 lb Weight Weight Bed scale Reported by Patient Measurement Method Physical Exam: General: WD/WN male in NAD; alert and oriented x 3 HEENT: NC/AT, PERRL, EOMI, clear oropharynx Neck: no JVD, no carotid bruit Heart: RRR w/o murmur Lungs: clear bilaterally Abdomen: soft, NT, +ve bowel sounds Extremities: no edema Diagnostic Data EKG Results sinus rhythm Assessment/Plan Assessment/Plan * This patient has a syncopal episode which is consistent with a seizure in the setting of poor compliance with taking his dilatin, a vasovagal episode elicited by severe back pain or weakness and vasodilitation from a concurrent infection. I have a low suspicion of ACS or dysrhythmia. * Agree with a neurology evaluation. The patient should take his Dilantin faithfully and I suspect he will need an EEG. * Hydrate with NS x 1 liter. * Agree with antibiotic therapy. * This patient should be on aspirin. No change in other medications. * An evaluation of his back discomfort will be needed. Consult Acknowledgment - Thank you for your consult request.
--- NOTE | 2017-05-21 13:14 | PN- Att Addend ---
See Addendum Attending Addendum Attending Brief Note Laboratory Tests 05/21/17 0850: Creatine Kinase 1057 H, Troponin I 0.04 05/20/171953: Urine Opiates Screen < 100.00, Methadone Screen < 40, Barbiturate Screen < 60, Ur Phencyclidine Scrn < 6.00, Amphetamines Screen < 100, U Benzodiazepines Scrn < 85, Urine Cocaine Screen < 50, Urine Cannabis Screen < 5.00, Urine Color YEL, Urine Clarity HAZY H, Urine pH 5.5, Ur Specific [place] >= 1.030, Urine Protein 30 H, Urine Ketones NEG, Urine Nitrite NEG, Urine Bilirubin NEG, Urine Urobilinogen 0.2, Ur Leukocyte Esterase NEG, Ur Microscopic SEDIMENT EXAMINED, Urine RBC 3-5, Urine WBC RARE, Ur Epithelial Cells FEW, Urine Crystals MIXED CRYSTALS, Granular Casts RARE H, Urine Hemoglobin SMALL H, Urine Glucose NEG 05/20/171941: Anion Gap 14, Estimated GFR > 60, BUN/Creatinine Ratio 17.5, Glucose 142 H, Calcium 9.2, Total Bilirubin 0.5, AST 45, ALT 52, Alkaline Phosphatase 83, Creatine Kinase 538 H, Troponin I 0.04, Total Protein 6.9, Albumin 4.3, Globulin 2.6, Albumin/Globulin Ratio 1.7, Prolactin 12.0, PT 11.1, INR 1.06, APTT 27, CBC w Diff NO MAN DIFF REQ, RBC 5.14, MCV 90.4, MCH 29.4, RDW 14.2, MPV 8.1, Gran % 82.8 H, Lymphocytes % 9.3 L, Monocytes % 7.8, Eosinophils % 0, Basophils % 0.1, Absolute Granulocytes 13.1 H, Absolute Lymphocytes 1.5, Absolute Monocytes 1.2 H, Absolute Eosinophils 0, Absolute Basophils 0, PUBS MCHC 32.5 L, Phenytoin 4.6 L Microbiology 05/21 1125 NASOPHARYN: Influenza Virus A & B Rapid Smear - COMP Vital Signs Date Time Temp Pulse Resp B/P B/P Pulse O2 O2 Flow FiO2 Mean Ox Delivery Rate 05/21 1032 68 140/80 05/21 1031 68 140/80 05/21 1030 68 140/80 05/21 0800 Nasal 3.0L Cannula 05/21 0739 97.6 68 18 126/74 92 Nasal 3.0L Cannula 05/21 0323 98.2 69 18 142/80 90 Nasal 3.0L Cannula 05/21 0319 90 Nasal 3.0L Cannula 05/21 0205 98.0 78 16 149/78 93 Nasal 3.0L Cannula 05/20 2301 97.6 78 20 121/63 95 Nasal 2.0L Cannula 05/20 2134 99.1 71 16 130/74 94 Room Air 05/20 193 93 Nasal 2.0L Cannula 05/20 1911 99.0 105 18 144/78 Pt admitted with fall at home with LOC and pt does not remember the events before the fall. Pt has h/o seizure disorder and f/u with Dr Rodriguez may have some non compliance issues with his meds. Await neuorlogy input and cont on his home dose of dilantin and did get loading dose in ER given that his dilantin level was low. Cardiology input appreciated. await echo results. d/w pt and pts family at bedside the care plan.
--- NOTE | 2017-05-21 14:01 | PN- Student ---
Subjective Subjective: The Lucas Gimenez, a 67 year old male smoker who presented for evaluation of confusion. Soure of Information: Patient, Daughter & Previous records Exam Limitations: Confusion History of Present Illness: Lucas Gimenez is a 67 year old male smoker with a past medical history of seizures who is also noncompliant with Phenytoin (Dilantin). In addition, Mr. Gimenez was also found to have a NSTEMI in 2013 with a stent placement, COPD ( emphysema) and renal issues. Patient was brought in by his daugther for the evaluation of confusion. Majority of the history was given by the daughter as the patient does not remember much of the events of yesterday. According to the patient's daugther she finds her father with mental deficits such as slurring his words and very confused. Patient admitted that he sustained a fall and also bit his tounge. Patient is unable to recall any seizure like activity, bowel or bladder incontinence or exactly how he fell or how long he was unconcious. The patient has made aware that he has severe back pain and increased urinary frequency. Patient lives alone at home while his daughter lives a short distance away. He is independant with his ADLs. Patient was diagnosed with a seizure disorder during his 30's and has been on Phenytoin however according to his daughter has been non-compliant with his medications. 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 -History of MRSA: None -History of VRE: None -History of C.diff: None Surgical History: -Non-Contributory Past Family/Social History Family History: -Mother, : cause unknown -Father, : Hypertension Psychosocial History: -Services at home: NONE -Smoking Status: Currently a Smoker (everyday) -ETOH use: Occaisional Use -Illicit Drug Use: Denies illicit drug use Review of Systems: -Constitutional: No Symptoms -EENTM: No Symptoms -Cardivascular: No Symptoms -Respiratory: No Symptoms -Gastrointestinal: No Symptoms -Genitourinary: Urinary frequency -Musculoskeletal: Back Pain -Skin: No Symptoms -Neurological/Psychological: No Symptoms -Hematologic/Endocrine: No Symptoms -Immunologic/Allergic: No Symptoms -All Other Systems: Reviewed & Negative Objective Objective: Vitals: Temp = 97.6F Pulse = 68 Resp Rate = 18 BP = 126/74 Pulse Ox = 92% Physical Exam: General Appearance Alert, Cooperative, Oriented x 2 Skin No Rashes, No Breakdown HEENT PERRLA, EOMI, Bump on the head, Laceration on the tongue Cardiovascular Regular Rate, Normal S1, Normal S2 Lungs Clear to Auscultation Abdomen Normal Bowel Sounds, Soft, No Tenderness Neurological Strength at 5/5 X4 Ext, Normal Tone, Sensation Intact, Cranial Nerves 3-12 NL, Brisk reflexes Extremities No Clubbing, No Cyanosis, Swelling and erythema of right elbow and right knee joint, no tenderness to palpation Results Results: Laboratory Tests 05/21/17 0850: Creatine Kinase 1057 H, Troponin I 0.04 05/20/171953: Urine Opiates Screen < 100.00, Methadone Screen < 40, Barbiturate Screen < 60, Ur Phencyclidine Scrn < 6.00, Amphetamines Screen < 100, U Benzodiazepines Scrn < 85, Urine Cocaine Screen < 50, Urine Cannabis Screen < 5.00, Urine Color YEL, Urine Clarity HAZY H, Urine pH 5.5, Ur Specific [place] >= 1.030, Urine Protein 30 H, Urine Ketones NEG, Urine Nitrite NEG, Urine Bilirubin NEG, Urine Urobilinogen 0.2, Ur Leukocyte Esterase NEG, Ur Microscopic SEDIMENT EXAMINED, Urine RBC 3-5, Urine WBC RARE, Ur Epithelial Cells FEW, Urine Crystals MIXED CRYSTALS, Granular Casts RARE H, Urine Hemoglobin SMALL H, Urine Glucose NEG 05/20/171941: Anion Gap 14, Estimated GFR > 60, BUN/Creatinine Ratio 17.5, Glucose 142 H, Calcium 9.2, Total Bilirubin 0.5, AST 45, ALT 52, Alkaline Phosphatase 83, Creatine Kinase 538 H, Troponin I 0.04, Total Protein 6.9, Albumin 4.3, Globulin 2.6, Albumin/Globulin Ratio 1.7, Prolactin 12.0, PT 11.1, INR 1.06, APTT 27, CBC w Diff NO MAN DIFF REQ, RBC 5.14, MCV 90.4, MCH 29.4, RDW 14.2, MPV 8.1, Gran % 82.8 H, Lymphocytes % 9.3 L, Monocytes % 7.8, Eosinophils % 0, Basophils % 0.1, Absolute Granulocytes 13.1 H, Absolute Lymphocytes 1.5, Absolute Monocytes 1.2 H, Absolute Eosinophils 0, Absolute Basophils 0, PUBS MCHC 32.5 L, Phenytoin 4.6 L Microbiology 05/21 1125 NASOPHARYN: Influenza Virus A & B Rapid Smear - COMP 05/21 1105 URINE ROUT: Urine Culture - RECD 05/21 0850 BLOOD: Blood Culture - RECD 05/21 0706 BLOOD: Blood Culture - RECD 05/21 0704 LOWER RESP: Respiratory Culture - COLB 05/21 703 LOWER RESP: Gram Stain - COLB Assessment/Plan Assessment: Assessment: Lucas Gimenez is a 67 year old male with a past medical history disorder non- compliant with phenytoin (Dilantin) and an NSTEMI with stent placement in 2013. Was brought in by his daughter for evaluation of confusion. Plan: 1 - Seizure Episode -Admit to telemetry floor -Neurochecks every two hours and a Neuroconsult to rule out strokes -Monitor CK levels - current leve of 538 -Continue with Aspirin & Statin -Ordered MRI for Saturday -Continue with Phenytoin -Cardioconsult -ECG 2 - Back Pain Pain management with IV Tylenol and Lidoderm path -MRI of back to rule out any fractures -Physical Therapy 3 - History of Coronary Artery Disease -Continue home Medications
[2017-05-21 14:26] VITALS: BP 112/60
[2017-05-21 22:56] VITALS: BP 130/82
[2017-05-22 06:00] VITALS: BP 150/88
--- NOTE | 2017-05-22 07:52 | PN- Housestaff ---
Brenton Leggett MD,[facility] 05/22/17 0752: Subjective Follow-up For: Syncope Seizure Vertebral compression fracture Subjective: Patient visited today, was lying in bed in no acute distress, was alert and oriented. Patient was complaining of back pain and cough. No fever or chills, no shortness of breathing, no chest pain, no other events. EEg was done today, planned to do MRI of spine and head tomorrow Review of Systems Constitutional: Reports: see HPI. Musculoskeletal: Reports: see HPI, back pain. Objective Last 24 Hrs of Vital Signs/I&O Vital Signs Date Time Temp Pulse Resp B/P B/P Pulse O2 O2 Flow FiO2 Mean Ox Delivery Rate 05/22 1456 98.3 73 22 138/80 90 Nasal 2.0L Cannula 05/22 0840 80 150/88 05/22 0840 80 150/88 05/22 0800 98 Nasal 2.0L Cannula 05/22 0600 98.4 80 22 150/88 92 05/21 2256 98.1 71 18 130/82 92 05/21 2105 86 130/83 Intake & Output 05/22 1600 05/22 0800 05/22 0000 Intake Total 900 1122 Output Total 450 125 600 Balance -450 775 522 Intake, IV 800 900 Intake, Oral 100 222 Output, Urine 450 125 600 Physical Exam General Appearance: Alert, Oriented X3, Cooperative, No Acute Distress Skin: No Significant Lesion Skin Temp/Moisture Exam: Warm/Dry Sepsis Skin Exam (color): Normal for Ethnicity HEENT: Atraumatic, EOMI, Mucous Membr. moist/pink Cardiovascular: Regular Rate, Normal S1, Normal S2 Lungs: Clear to Auscultation Abdomen: Soft, No Tenderness Neurological: Normal Speech, Strength at 5/5 X4 Ext, Back pain Extremities: No Edema Current Medications: Current Medications Sig/Peggy Start time Last Medication Dose Route Stop Time Status Admin Acetaminophen 1,000 MG Q8P PRN 05/21 1330 AC 05/22 IV 0844 Acetaminophen 650 MG Q6P PRN 05/21 0345 DC PO Ampicillin Sodium/ 1,500 MG Q6 05/21 0600 AC 05/22 Sulbactam Sodium IV 1205 Sodium Chloride 100 ML Aspirin 325 MG DAILY 05/21 1000 AC 05/22 PO 0840 Atorvastatin Calcium 40 MG 1700 05/21 1700 AC 05/21 PO 1656 Enoxaparin Sodium 40 MG DAILY 05/21 1000 AC 05/22 SC 0842 Guaifenesin/ 10 ML Q6P PRN 05/22 1200 AC 05/22 Dextromethorphan PO 1205 Hydromorphone HCl 2 MG ONCE ONE 05/22 0410 DC 05/22 IV 05/22 0411 0435 Hydromorphone HCl 2 MG ONCE ONE 05/21 2014 DC 05/21 PO 05/21 Ibuprofen 600 MG Q6P PRN 05/21 0345 DC PO Lidocaine 1 PAT DAILY 05/21 0215 AC 05/22 EXT 0841 Lisinopril 20 MG DAILY 05/21 1000 AC 05/22 PO 0840 Metoprolol Tartrate 25 MG BID 05/21 1000 AC 05/22 PO 0840 Oxycodone HCl 5 MG Q6 PRN 05/22 1415 AC PO Phenytoin 100 MG BID 05/21 1000 AC 05/22 PO 0840 Sodium Chloride 1,000 ML Q10H 05/21 0400 AC 05/22 IV 0001 Last 24 Hrs of Lab/[place] Results Last 24 Hrs of Labs/Mics: Laboratory Tests 05/22/17 0700: Anion Gap 12, Estimated GFR > 60, BUN/Creatinine Ratio 26.0 H, Creatine Kinase 677 H, CBC w Diff NO MAN DIFF REQ, RBC 4.98, MCV 91.3, MCH 29.9, RDW 14.1, MPV 9.4, Gran % 72.6, Lymphocytes % 17.6 L, Monocytes % 8.7, Eosinophils % 0.3, Basophils % 0.8, Absolute Granulocytes 11.9 H, Absolute Lymphocytes 2.9, Absolute Monocytes 1.4 H, Absolute Eosinophils 0, Absolute Basophils 0.1, PUBS MCHC 32.8 L Assessment/Plan Assessment: Patient is 67 y/o gentleman presented with syncope Was confused after syncope Denied missing medication PMH: seizure disorder noncompliant with dilantin and NSTEMI (2014) s/p stent x3 VS, Ph Ex at admission: Insignificant, on 2L O2 sat>90% Labs at admission: WBC 15.8, CPK 538, phenytoin 4.6, other insignificant Imagings at admission: [place] CT: - No acute intracranial findings. Mild volume loss with small vessel ischemic changes. - No acute fracture or malalignment of the cervical spine. Mild degenerative changes - Mild anterior wedging and vertebral body height loss to the T7-T9 vertebral bodies. This is age indeterminant, though likely chronic. - Opacification within the inferior segment of the lingula. This is nonspecific, but may be chronic. Follow-up is recommended to assure resolution or stability of this appearance. - No evidence for acute intrathoracic, abdominal nor pelvic injury. -Cholelithiasis without evidence of cholecystitis. - Bilateral adrenal masses. Consider correlation with MRI for further tissue characterization. - Emphysema. Patient was admitted to telemetry floor for management of following conditions: A/P; 1. Seizure episode 2/2 to medication noncompliance/ postictal state; Echo: Normal size left ventricle. Normal left ventricular wall thickness. Normal left ventricular ejection fraction visually estimated at > 65%. Abnormal relaxation filling pattern of the left ventricle for age (stage 1 diastolic dysfunction). Normal right ventricular size and function. Normal atrial size. Trace mitral regurgitation. Trace tricuspid regurgitation. Unable to estimate the right ventricular systolic pressure. Trace pulmonic regurgitation. - continue telemetry floor - Neurochecks every 2 hours - Neuro Consult; rule out stroke - Continue aspirin and statin - We will do MRI and EEG - Phenytoin level is low; IV Dilantin loaded - Pheynytoin PO contninue - Follow with neuro with level - Cardio consult 2. Back pain status post fall; - Mild anterior wedging and vertebral body height loss to T7-9 vertebral bodies ?acute vs chronic. - Pain management with IV Tylenol and Lidoderm patch - MRI head and back - PT consult 3. Aspiration pneumonia - CT chest shows opacification within inferior segment of lingula - IV Unasyn - robitussin for cough 4. h/o CAD History of coronary artery disease status post stent placement; - Continue home medications. DVT prophylaxis; subcutaneous Lovenox and Alps Patient is full code Problem List: 1. Seizure 2. Vertebral fracture Pain Ratin Pain Location: back Pain Goal: Pain 4 or less Pain Plan: oxycodone Tomorrow's Labs & Rationales: cbc bep Fannie Hong 05/22/17 1651: Attending MD Review Statement Attending Statement Attending MD Statement: examined this patient, discuss w/resident/PA/PLATFORM SUPERVISOR, agreed w/resident/PA/PLATFORM SUPERVISOR, discussed with family, reviewed EMR data (avail), discussed with nursing, discussed with case mgmt Attending Assessment/Plan: Pt admitted with fall at home with LOC and pt does not remember the events before the fall. Pt has h/o seizure disorder and f/u with Dr Rodriguez may have some non compliance issues with his meds. Breakthrough Seizures- neuorlogy input appreciated and cont on his home dose of dilantin and did get loading dose in ER given that his dilantin level was low. Await EEG report and MRI brain. Cardiology input appreciated. echo results-normal ef and stage 1 diastolic dysfunction. Paraspinal tenderness in lower thoracic spine more to the rt side. Will get MRI of thoracic and lumbar spine given his fall prior to admission and cont pain in that area. Aspiration pneumonia- cont on unasyn, if wbc not improving will consider changing abx . Bilateral adrenal masses. d/w pt the imaging findings. Will need MRI as an outpatient and further workup per PCP. d/w pt and family the care plan
[2017-05-22 08:21] LABS: ABSOLUTE BASOPHIL COUNT 0.1 /CUMM (0.0-0.2); ABSOLUTE EOSINOPHIL COUNT 0 /CUMM (0.0-0.7); ABSOLUTE GRANULOCYTE CT 11.9 /CUMM (1.4-6.5); ABSOLUTE LYMPH COUNT 2.9 /CUMM (1.2-3.4); ABSOLUTE MONOCYTE COUNT 1.4 /CUMM (0.10-0.60); BASOPHIL % 0.8 % (0.0-2.0); EOSINOPHIL % 0.3 % (0-5); GRANULOCYTE % 72.6 % (42.2-75.2); HEMATOCRIT 45.5 % (42-52); MEAN CORPUSCULAR HGB 29.9 PG (27.0-31.0); MEAN CORPUSCULAR HGB CONC 32.8 G/DL (33.0-37.0); MEAN CORPUSCULAR VOLUME 91.3 FL (80.0-94.0); MEAN PLATELET VOLUME 9.4 FL (7.4-10.4); RBC DISTRIBUTION WIDTH 14.1 % (11.5-14.5); RED BLOOD CELL CT 4.98 /CUMM (4.70-6.10); WHITE BLOOD CELL COUNT 16.3 /CUMM (4.8-10.8)
[2017-05-22 09:25] LABS: PLATELET COUNT 129 /CUMM (130-400)
--- NOTE | 2017-05-22 12:25 | ECHOCARDIOGRAM REPORT ---
BRENDA FOSTER Age: 67 : 1950 Gender: M Exam Date: 05/21/2017 10:32 Exam Location: 1 [address] Ht (in): 69 Wt (lb): 153 BSA: 1.84 BP: 126 / 74 Ordering Physician: Samra Quinones MD Referring Physician: Samra Quinones MD Technologist: Shin Guevara [facility] Room Number: 179-2 Indications: STROKE Rhythm: Sinus Technical Quality: Technically difficult study FINDINGS Left Ventricle Normal size left ventricle. Normal left ventricular wall thickness. No obvious regional wall motion abnormalities. Normal left ventricular ejection fraction visually estimated at >65%. Abnormal relaxation filling pattern of the left ventricle for age (stage 1 diastolic dysfunction). Right Ventricle Normal right ventricular size and function. Right Atrium Normal right atrial size. Left Atrium Normal left atrial size. Mitral Valve Mild mitral annular calcification. Mitral valve mildly thickened. Trace mitral regurgitation. Aortic Valve Trileaflet aortic valve. Mild aortic sclerosis. No aortic valve stenosis or regurgitation. Tricuspid Valve Structurally normal tricuspid valve. Trace tricuspid regurgitation. Unable to estimate the right ventricular systolic pressure. Pulmonic Valve Pulmonic valve not well visualized, grossly normal. Trace pulmonic regurgitation. Pericardium No pericardial effusion. Great Vessels Normal size aortic root. CONCLUSIONS Normal size left ventricle. Normal left ventricular wall thickness. Normal left ventricular ejection fraction visually estimated at > 65%. Abnormal relaxation filling pattern of the left ventricle for age (stage 1 diastolic dysfunction). Normal right ventricular size and function. Normal atrial size. Trace mitral regurgitation. Trace tricuspid regurgitation. Unable to estimate the right ventricular systolic pressure. Trace pulmonic regurgitation. Hiren Carranza M.D. (Electronically Signed) Final Date: 22 May 2017 12:24 MEASUREMENTS (Male / Female) Normal Values 2D ECHO LV Diastolic Diameter PLAX 5.6 cm 4.2 - 5.9 / 3.9 - 5.3 cm LV Systolic Diameter PLAX 4.0 cm 2.1 - 4.0 cm LV Fractional Shortening PLAX 28.6 % 25 - 46 % LV Ejection Fraction 2D Teich 54.4 % IVS Diastolic Thickness 1.0 cm LVPW Diastolic Thickness 0.9 cm LV Relative Wall Thickness 0.3 RV Internal Dim ED PLAX 2.5 cm 1.9 - 3.8 cm LVOT Diameter 2.0 cm Aortic Root Diameter 3.2 cm LA Systolic Diameter LX 2.9 cm 3.0 - 4.0 / 2.7 - 3.8 cm LA Volume 44.0 cm 18 - 58 / 22 - 52 cm Ascending Aorta Diameter 3.1 cm DOPPLER AV Peak Velocity 132.0 cm/s AV Peak Gradient 7.0 mmHg AV Mean Velocity 90.0 cm/s AV Mean Gradient 4.0 mmHg AV Velocity Time Integral 30.3 cm LVOT Peak Velocity 94.0 cm/s LVOT Peak Gradient 3.5 mmHg LVOT Mean Velocity 61.1 cm/s LVOT Mean Gradient 2.0 mmHg LVOT Velocity Time Integral 22.5 cm LVOT Stroke Volume 70.7 cm AV Area Cont Eq vti 2.3 cm AV Area Cont Eq pk 2.2 cm TR Peak Velocity 461.0 cm/s TR Peak Gradient 85.0 mmHg PV Peak Velocity 92.4 cm/s PV Peak Gradient 3.4 mmHg PV Mean Velocity 67.6 cm/s PV Mean Gradient 2.0 mmHg PV Velocity Time Integral 21.8 cm LV E' Lateral Velocity 16.0 cm/s LV E' Septal Velocity 7.7 cm/s
--- NOTE | 2017-05-22 12:30 | Cons- Neurology ---
General Information and HPI Consulting Request Date of Consult: 05/22/17 Requested By: Fannie Hong MD History of Present Illness: 57-year-old white male with remote history of seizure disorder dating back to his 30s. He has been maintained on Dilantin over time despite the fact that he has been seizure-free for many years. The patient states that he is compliant with his dosing however Dilantin level on admission was 4.6. He was brought to Hospital after being found by his daughter confused and with apparent recent tongue biting. The patient reportedly fell for reasons unclear. He is unable to describe any premonitory symptoms. He had been in his usual state of health. There have been no recent fever or intercurrent medical illness. Allergies/Medications Allergies: Coded Allergies: NO KNOWN ALLERGIES (04/22/14) Home Med List: Atorvastatin Calcium (Lipitor) 40 MG TABLET 1 TAB PO DAILY CHOLESTEROL [Ecotrin] 325 MG PO DAILY HEART HEALTH Lisinopril 20 MG TABLET 1 TAB PO DAILY HTN Metoprolol Tartrate (Lopressor) 50 MG TABLET 0.5 TAB PO BID HTN Phenytoin (Dilantin) 100 MG CAPSULE 1 CAP PO BID SEIZURE (Reported) Review of Systems Review of Systems: Endorses low back pain following his fall and dry mouth. 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 FATHER (Hypertension). . Psychosocial History Where Do You Live? Home Services at Home: None Smoking Status: Current Everyday Smoker ETOH Use: denies use, occasional use Illicit Drug Use: denies illicit drug use Functional Ability ADLs Independent: dressing, eating, toileting, bathing. Ambulation: independent IADLs Independent: shopping, housework, finances, food prep, telephone, transportation , medication admin. Exam & Diagnostic Data Vital Signs and I&O Vital Signs Date Time Temp Pulse Resp B/P B/P Pulse O2 O2 Flow FiO2 Mean Ox Delivery Rate 05/22 0840 80 150/88 05/22 0840 80 150/88 05/22 0800 98 Nasal 2.0L Cannula 05/22 0600 98.4 80 22 150/88 92 05/21 2256 98.1 71 18 130/82 92 05/21 2105 86 130/83 05/21 1430 Nasal 3.0L Cannula 05/21 1426 98.1 68 18 112/60 91 Nasal 3.0L Cannula Intake & Output 05/22 1600 05/22 0800 05/22 0000 Intake Total 900 1122 Output Total 125 600 Balance 775 522 Intake, IV 800 900 Intake, Oral 100 222 Output, Urine 125 600 Middle-aged male in no acute distress. The head was normocephalic and atraumatic. He was awake, alert and cooperative. Speech was fluent. He was oriented to person place and time. He knew the name of the current president. Pupils were equal. Extraocular movements were full. Face was symmetric. Tongue was midline. There was a mild abrasion on the right lateral border of the tongue. The motor examination showed no drift of the upper extremities. There was no gross focal or lateralizing weakness. Deep tendon reflexes were symmetric. Plantar responses were flexor. There was no ataxia on finger-to- nose testing. Joint position sense was intact. The gait was not evaluated. Assessment/Plan Assessment: In all likelihood, the patient has had a recurrent seizure manifest by tongue biting and transient postictal confusion. His Dilantin level was subtherapeutic. He was rebolused with 1 gram Recommendations: Would continue the patient on Dilantin 300 mg per day. This can be given all at one time to enhance compliance. After a 7 day period of strict compliance, we would then repeat the Dilantin level. If it indeed is still low, we would alter the dose. This naturally can be done as an outpatient. I would also recommend an EEG however do not believe that this will alter our management presently. This too can be performed as an outpatient. I would be happy to follow with the patient in the office setting following his discharge. I do not anticipate a prolonged hospital stay. Please feel free to call with any further questions. Consult Acknowledgment - Thank you for your consult request.
[2017-05-22 14:56] VITALS: BP 138/80
--- NOTE | 2017-05-22 19:55 | PN- Cardiology ---
Subjective Subjective: No complaints. No significant dysrhythmias noted on telemetry. Objective Vital Signs and I&Os Vital Signs Date Time Temp Pulse Resp B/P B/P Pulse O2 O2 Flow FiO2 Mean Ox Delivery Rate 05/22 1802 Nasal 2.0L Cannula 05/22 1456 98.3 73 22 138/80 90 Nasal 2.0L Cannula 05/22 0840 80 150/88 05/22 0840 80 150/88 05/22 0800 98 Nasal 2.0L Cannula 05/22 0600 98.4 80 22 150/88 92 05/21 2256 98.1 71 18 130/82 92 05/21 2105 86 130/83 Intake & Output 05/22 1600 05/22 0800 05/22 0000 05/21 1600 05/21 0800 05/21 0000 Intake Total 9034 277 6678 1483 300 250 Output Total 800 125 600 250 500 Balance 200 756 552 1343 300 -250 Intake, IV 600 800 900 911 300 250 Intake, Oral 400 100 222 572 Output, Urine 800 125 600 250 500 Patient 153 lb 160 lb Weight Weight Bed scale Reported by Patient Measurement Method Physical Exam: Well-developed, well-nourished male in no acute distress. Vital signs: See above. Neck: No JVD, no bruits. Lungs: Clear to auscultation bilaterally. Heart: S1, S2 with no murmur, gallop, or rub appreciated. Abdomen: Soft, nontender, positive bowel sounds. Extremities: No edema. Current Medications: Current Medications Sig/Peggy Start time Last Medication Dose Route Stop Time Status Admin Acetaminophen 1,000 MG Q8P PRN 05/21 1330 AC 05/22 IV 0844 Acetaminophen 650 MG Q6P PRN 05/21 0345 DC PO Ampicillin Sodium/ 1,500 MG Q6 05/21 0600 AC 05/22 Sulbactam Sodium IV 1736 Sodium Chloride 100 ML Aspirin 325 MG DAILY 05/21 1000 AC 05/22 PO 0840 Atorvastatin Calcium 40 MG 1700 05/21 1700 AC 05/22 PO 1736 Enoxaparin Sodium 40 MG DAILY 05/21 1000 AC 05/22 SC 0842 Guaifenesin/ 10 ML Q6P PRN 05/22 1200 AC 05/22 Dextromethorphan PO 1205 Hydromorphone HCl 2 MG ONCE ONE 05/22 0410 DC 05/22 IV 05/22 0411 0435 Hydromorphone HCl 2 MG ONCE ONE 05/21 2014 DC 05/21 PO 05/21 Ibuprofen 600 MG Q6P PRN 05/21 344 DC PO Lidocaine 1 PAT DAILY 05/21 0215 AC 05/22 EXT 0841 Lisinopril 20 MG DAILY 05/21 1000 AC 05/22 PO 0840 Metoprolol Tartrate 25 MG BID 05/21 1000 AC 05/22 PO 0840 Oxycodone HCl 5 MG Q6 PRN 05/22 1415 AC 05/22 PO 1736 Phenytoin 100 MG BID 05/21 1000 AC 05/22 PO 0840 Sodium Chloride 1,000 ML Q10H 05/21 0400 AC 05/22 IV 0001 Results Last 48 Hrs of Labs/Mics: Laboratory Tests 05/22/17 0700: Anion Gap 12, Estimated GFR > 60, BUN/Creatinine Ratio 26.0 H, Creatine Kinase 677 H, CBC w Diff NO MAN DIFF REQ, RBC 4.98, MCV 91.3, MCH 29.9, RDW 14.1, MPV 9.4, Gran % 72.6, Lymphocytes % 17.6 L, Monocytes % 8.7, Eosinophils % 0.3, Basophils % 0.8, Absolute Granulocytes 11.9 H, Absolute Lymphocytes 2.9, Absolute Monocytes 1.4 H, Absolute Eosinophils 0, Absolute Basophils 0.1, PUBS MCHC 32.8 L 05/21/17 0850: Creatine Kinase 1057 H, Troponin I 0.04 Microbiology 05/21 1125 NASOPHARYN: Influenza Virus A & B Rapid Smear - COMP Recent Imaging Studies: Echocardiogram (05/21/2017: Normal size left ventricle. Normal left ventricular wall thickness. Normal left ventricular ejection fraction visually estimated at > 65%. Abnormal relaxation filling pattern of the left ventricle for age (stage 1 diastolic dysfunction). Normal right ventricular size and function. Normal atrial size. Trace mitral regurgitation. Trace tricuspid regurgitation. Unable to estimate the right ventricular systolic pressure. Trace pulmonic regurgitation. Assessment/Plan Assessment/Plan [id number] w/ hx tobacco use, HTN, CAD (s/p PCI), & Sz disorder maintained on phenytoin who presented to the ED 06/20/2017 w/ AMS, weakness, oral trauma from suspected seizure with subtherapeutic phenytoin level. Recommendations: * Continue on telemetry. * Phenytoin loading, EEG, etc. as per neurology. * Continue cardiac regimen, but consider decreasing dosage of aspirin given seizure history. * DVT prophylaxis. Continue telemetry? Yes
[2017-05-22 22:00] VITALS: BP 154/90
[2017-05-23 06:00] VITALS: BP 144/78
--- NOTE | 2017-05-23 07:41 | PN- Housestaff ---
See Addendum Subjective Follow-up For: Syncope Seizure Vertebral compression fracture Tele-Events Since Last Visit: SR 65- Subjective: Patient visited today, was lying still in bed comfortably, was complaining of backpain with movement, was alert and oriented. Backpain and cough improved. No fever or chills, no shortness of breathing, no chest pain, no other events. Planned to do MRI today spine and brain. Asprin needed to be stopped for 3days for vert aug consideration. PT evaluation was done and recommended home PT with consideration of patient O2 need. Review of Systems Constitutional: Reports: see HPI. Objective Last 24 Hrs of Vital Signs/I&O Vital Signs Date Time Temp Pulse Resp B/P B/P Pulse O2 O2 Flow FiO2 Mean Ox Delivery Rate 05/23 06 98.4 75 22 144/78 90 05/23 0000 Nasal 4.0L Cannula 05/22 2200 97.8 77 22 154/90 92 Nasal 4.0L Cannula 05/22 2041 77 154/90 05/22 1802 Nasal 2.0L Cannula 05/22 1456 98.3 73 22 138/80 90 Nasal 2.0L Cannula 05/22 0840 80 150/88 05/22 0840 80 150/88 Intake & Output 05/23 1600 05/23 0800 05/23 0000 Intake Total 1140 640 Output Total 1225 750 Balance -85 -110 Intake, IV 900 400 Intake, Oral 240 240 Number 0 0 Bowel Movements Output, Urine 1225 750 Physical Exam General Appearance: Alert, Oriented X3, Cooperative, No Acute Distress Skin: No Significant Lesion Skin Temp/Moisture Exam: Warm/Dry Sepsis Skin Exam (color): Normal for Ethnicity HEENT: Atraumatic, EOMI, Mucous Membr. moist/pink Cardiovascular: Regular Rate, Normal S1, Normal S2 Lungs: Clear to Auscultation Abdomen: Soft, No Tenderness Neurological: Normal Speech Extremities: No Edema, point tenderness of the back Current Medications: Current Medications Sig/Peggy Start time Last Medication Dose Route Stop Time Status Admin Acetaminophen 1,000 MG Q8P PRN 05/21 1330 AC 05/22 IV 2031 Acetaminophen 650 MG Q6P PRN 05/21 0345 DC PO Ampicillin Sodium/ 1,500 MG Q6 05/21 0600 AC 05/23 Sulbactam Sodium IV 0508 Sodium Chloride 100 ML Aspirin 325 MG DAILY 05/21 1000 AC 05/22 PO 0840 Atorvastatin Calcium 40 MG 1700 05/21 1700 AC 05/22 PO 1736 Enoxaparin Sodium 40 MG DAILY 05/21 1000 AC 05/22 SC 0842 Guaifenesin/ 10 ML Q6P PRN 05/22 1200 AC 05/22 Dextromethorphan PO 1205 Ibuprofen 600 MG Q6P PRN 05/21 0345 DC PO Lidocaine 1 PAT DAILY 05/21 0215 AC 05/22 EXT 0841 Lisinopril 20 MG DAILY 05/21 1000 AC 05/22 PO 0840 Metoprolol Tartrate 25 MG BID 05/21 1000 AC 05/22 PO 2041 Oxycodone HCl 5 MG Q6 PRN 05/22 1415 AC 05/23 PO 0509 Phenytoin 100 MG BID 05/21 1000 AC 05/22 PO 2041 Sodium Chloride 1,000 ML Q10H 05/21 0400 AC 05/22 IV 2031 Last 24 Hrs of Lab/[place] Results Last 24 Hrs of Labs/Mics: Laboratory Tests 05/23/17627: CBC w Diff NO MAN DIFF REQ, RBC 4.86, MCV 90.4, MCH 30.2, MCHC 33.4, RDW 13.9, MPV 9.0, Gran % 71.5, Lymphocytes % 18.0 L, Monocytes % 9.6 H, Eosinophils % 0.5, Basophils % 0.4, Absolute Granulocytes 7.8 H, Absolute Lymphocytes 2.0, Absolute Monocytes 1.1 H, Absolute Eosinophils 0.1, Absolute Basophils 0 Assessment/Plan Assessment: Patient is 67 y/o gentleman presented with syncope Was confused after syncope Denied missing medication PMH: seizure disorder noncompliant with dilantin and NSTEMI (2014) s/p stent x3 VS, Ph Ex at admission: Insignificant, on 2L O2 sat>90% Labs at admission: WBC 15.8, CPK 538, phenytoin 4.6, other insignificant Imagings at admission: [place] CT: - No acute intracranial findings. Mild volume loss with small vessel ischemic changes. - No acute fracture or malalignment of the cervical spine. Mild degenerative changes - Mild anterior wedging and vertebral body height loss to the T7-T9 vertebral bodies. This is age indeterminant, though likely chronic. - Opacification within the inferior segment of the lingula. This is nonspecific, but may be chronic. Follow-up is recommended to assure resolution or stability of this appearance. - No evidence for acute intrathoracic, abdominal nor pelvic injury. -Cholelithiasis without evidence of cholecystitis. - Bilateral adrenal masses. Consider correlation with MRI for further tissue characterization. - Emphysema. Patient was admitted to telemetry floor for management of following conditions: A/P; 1. Seizure episode 2/2 to medication noncompliance/ postictal state; Echo: Normal size left ventricle. Normal left ventricular wall thickness. Normal left ventricular ejection fraction visually estimated at > 65%. Abnormal relaxation filling pattern of the left ventricle for age (stage 1 diastolic dysfunction). Normal right ventricular size and function. Normal atrial size. Trace mitral regurgitation. Trace tricuspid regurgitation. Unable to estimate the right ventricular systolic pressure. Trace pulmonic regurgitation. EEG was performed: Normal EEG in the awake and drowsy state. No focal or epileptiform features were noted MRI of the head was done which did not reveal acute pathology: 1. Images are degraded by patient motion artifact on multiple sequences. 2. There is mild diffuse volume loss, and there are sequelae of chronic microvascular ischemic disease. 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 3. There are no acute bleeds or infarcts. - continue telemetry floor - Neurochecks every 2 hours - Continue aspirin and statin - We will do MRI and EEG - Phenytoin level is low; IV Dilantin loaded - Pheynytoin PO contninue - Follow with neuro with med level - Cardio consult 2. Back pain status post fall; Ct revealed Mild anterior wedging and vertebral body height loss to T7-9 vertebral bodies ?acute vs chronic. MRI of the spine was done: 1. Imaging is degraded by patient motion artifact on multiple sequences. 2. There are old compression fractures of the bodies of T7, T8 and T9, demonstrated on prior imaging. These vertebrae have isointense signal to the adjacent vertebrae, consistent with chronic findings. 3. There is mild increased signal along the superior endplate of T3 with minimal loss of superior vertebral body height consistent with an acute/subacute fracture. 4. There are multilevel spondylitic changes with posterior disc osteophyte complexes and foraminal narrowing in the lower cervical spine and thoracic spine as described above. - Pain management with IV Tylenol, oxycodone Lidoderm patch - Continue PT - IR consult for nav [place] - consider stop asprin for 3d before procedure 3. Aspiration pneumonia improved - CT chest shows opacification within inferior segment of lingula - IV Unasyn - robitussin for cough 4. h/o CAD History of coronary artery disease status post stent placement; - Continue home medications. DVT prophylaxis; subcutaneous Lovenox and Alps Patient is full code Problem List: 1. Vertebral fracture 2. Seizure 3. Aspiration pneumonia Pain Ratin Pain Location: back pain Pain Goal: Pain 4 or less Pain Plan: continue current plan Tomorrow's Labs & Rationales: cbc bep
[2017-05-23 07:49] LABS: ABSOLUTE BASOPHIL COUNT 0 /CUMM (0.0-0.2); ABSOLUTE EOSINOPHIL COUNT 0.1 /CUMM (0.0-0.7); ABSOLUTE GRANULOCYTE CT 7.8 /CUMM (1.4-6.5); ABSOLUTE MONOCYTE COUNT 1.1 /CUMM (0.10-0.60); BASOPHIL % 0.4 % (0.0-2.0); EOSINOPHIL % 0.5 % (0-5); GRANULOCYTE % 71.5 % (42.2-75.2); HEMATOCRIT 43.9 % (42-52); MEAN CORPUSCULAR HGB 30.2 PG (27.0-31.0); MEAN CORPUSCULAR HGB CONC 33.4 G/DL (33.0-37.0); MEAN CORPUSCULAR VOLUME 90.4 FL (80.0-94.0); PLATELET COUNT 177 /CUMM (130-400); RBC DISTRIBUTION WIDTH 13.9 % (11.5-14.5); RED BLOOD CELL CT 4.86 /CUMM (4.70-6.10); WHITE BLOOD CELL COUNT 10.9 /CUMM (4.8-10.8)
[2017-05-23 08:23] VITALS: BP 146/76
--- NOTE | 2017-05-23 10:34 | MRI REPORT ---
EXAMINATION: MR BRAIN WITHOUT CONTRAST CLINICAL INFORMATION: Stuttering and confusion. Assess for stroke. COMPARISON: CT scan of the head 05/20/2017. TECHNIQUE: MRI of the brain without contrast was obtained using routine sequences. Images are degraded by patient motion artifact on multiple sequences. FINDINGS: No diffusion abnormalities are identified to suggest an acute or subacute infarct. No mass effect or midline shift is seen. There is mild commensurate prominence of the ventricles and sulci consistent with mild diffuse volume loss. There are a few scattered foci of T2 and FLAIR hyperintensity in the white matter which are consistent with chronic microvascular ischemic changes. There are sequelae of an infarct with surrounding gliosis in the region of the right caudate head/anterior limb of the internal capsule. No extra-axial fluid collections are seen. The brainstem and cerebellum are normal. No pathologic magnetic susceptibility artifact is identified on the gradient refocused acquisition. The craniovertebral junction, marrow signal, and midline structures are normal. The major intracranial flow-voids at the level of the lower [place] are preserved. The dural venous sinus flow-voids are maintained. There is mild fluid at the left mastoid tip. The paranasal sinuses are well-aerated. IMPRESSION: 1. Images are degraded by patient motion artifact on multiple sequences. 2. There is mild diffuse volume loss, and there are sequelae of chronic microvascular ischemic disease. 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 3. There are no acute bleeds or infarcts.
--- NOTE | 2017-05-23 11:23 | MRI REPORT ---
EXAMINATION: MR THORACIC SPINE WITHOUT CONTRAST CLINICAL INFORMATION: Severe pain. Could not void. CT demonstrated wedging T7-T9. COMPARISON: CT scan of the chest, abdomen and pelvis 05/20/2017. TECHNIQUE: MRI of the thoracic spine without contrast was obtained. Imaging is degraded by patient motion artifact on multiple sequences. The patient was unable to tolerate postcontrast imaging. FINDINGS: VERTEBRAL BODIES AND PARASPINAL STRUCTURES: There is a mild levoscoliosis. There is multilevel narrowing of intervertebral disc height with loss of signal throughout the thoracic spine. There is mild increased STIR signal along the superior body of T3, with corresponding mild increased density on the CT scan, which may be consistent with an acute/subacute fracture. There is loss of vertebral body height superiorly with invagination of discs into the superior endplates at the levels of T7, T8 and T9, demonstrated on prior imaging. These vertebrae have isointense signal to the adjacent vertebrae, consistent with chronic changes. There are multilevel degenerative endplate contour changes between T6-T7 and T11-T12. There are no acute fractures. Overall, marrow signal is homogenous. Allowing for relatively extensive patient motion artifact, the paravertebral structures are unremarkable. The posterior thoracic structures are unremarkable. There is a 1.8 cm cyst toward the upper pole of the left kidney posteriorly and there are right parapelvic cysts, demonstrated on prior imaging. The conus is at the level of L1. Accounting for artifact, spinal cord signal appears normal. SPINAL LEVELS: C6-C7: There is a broad-based posterior disc osteophyte complex which effaces CSF ventral to the spinal cord. There is mild flattening of the spinal cord. There is bilateral foraminal narrowing. C7-T1 through T4-T5: Disc contours are normal. There is no central stenosis or foraminal narrowing. T5-T6: There is a central posterior disc protrusion with mild flattening of the spinal cord. There is no central stenosis. The neural foramina are patent. T6-T7 through T10-T11: Posterior disc contours are within normal limits. There is no spinal cord compression or central stenosis and the neural foramina are patent. T11-T12: There is a central and right paracentral small disc protrusion with an annular fissure. There is no spinal cord compression or central stenosis. The neural foramina are patent. IMPRESSION: 1. Imaging is degraded by patient motion artifact on multiple sequences. 2. There are old compression fractures of the bodies of T7, T8 and T9, demonstrated on prior imaging. These vertebrae have isointense signal to the adjacent vertebrae, consistent with chronic findings. 3. There is mild increased signal along the superior endplate of T3 with minimal loss of superior vertebral body height consistent with an acute/subacute fracture. 4. There are multilevel spondylitic changes with posterior disc osteophyte complexes and foraminal narrowing in the lower cervical spine and thoracic spine as described above.
--- NOTE | 2017-05-23 12:34 | ELECTROENCEPHALOGRAM REPORT ---
Electroencephalogram Report Electroencephalogram Results Date of service: 05/22/17 Attending MD: Fannie Hong MD Clerical Car Checker: Akin Gomez EEG Number: [id number] Test Utilizes: 10-20 system, 21 lead 18 channel digital recording Pertinent Hx/Physical/Neuro Findings/Clin Diagnosis: seizure Inpatient Medications: Current Medications Sig/Peggy Start time Last Medication Dose Route Stop Time Status Admin Acetaminophen 1,000 MG Q8P PRN 05/21 1330 AC 05/23 IV 1012 Acetaminophen 650 MG Q6P PRN 05/21 0345 DC PO Ampicillin Sodium/ 1,500 MG Q6 05/21 0600 AC 05/23 Sulbactam Sodium IV 1113 Sodium Chloride 100 ML Aspirin 325 MG DAILY 05/21 1000 AC 05/23 PO 0825 Atorvastatin Calcium 40 MG 1700 05/21 1700 AC 05/22 PO 1736 Enoxaparin Sodium 40 MG DAILY 05/21 1000 AC 05/23 SC 0825 Guaifenesin/ 10 ML Q6P PRN 05/22 1200 AC 05/22 Dextromethorphan PO 1205 Ibuprofen 600 MG Q6P PRN 05/21 0345 DC PO Lidocaine 1 PAT DAILY 05/21 0215 AC 05/22 EXT 0841 Lisinopril 20 MG DAILY 05/21 1000 AC 05/23 PO 0825 Metoprolol Tartrate 25 MG BID 05/21 1000 AC 05/23 PO 0825 Oxycodone HCl 5 MG Q6 PRN 05/22 1415 AC 05/23 PO 0509 Phenytoin 100 MG BID 05/21 1000 AC 05/23 PO 0825 Sodium Chloride 1,000 ML Q10H 05/21 0400 AC 05/23 IV 0825 Interpretation: The predominant posterior background rhythm consists of medium voltage 8-9 cps activity which attenuates to eye opening. Lower voltage faster frequencies were seen over the anterior head regions bilaterally. Generalized slowing of the background seen during periods of drowsiness. No focal, paroxysmal or lateralizing features were appreciated. Hyperventilation was deferred. Photic stimulation induced no abnormalities. Impression: Normal EEG in the awake and drowsy state. No focal or epileptiform features were noted
[2017-05-23 15:51] VITALS: BP 130/70
--- NOTE | 2017-05-23 19:19 | PN- Cardiology ---
Subjective Subjective: * Patient complains of severe back pain. No lightheadedness of palpitations. * no arrhyhtmias on telemetry Objective Vital Signs and I&Os Vital Signs Date Time Temp Pulse Resp B/P B/P Pulse O2 O2 Flow FiO2 Mean Ox Delivery Rate 05/23 1551 98.2 85 21 130/70 89 05/23 08 71 146/76 05/23 0825 71 146/76 05/23 0823 71 146/76 05/23 08 Nasal 4.0L Cannula 05/23 06 98.4 75 22 144/78 90 05/23 0000 Nasal 4.0L Cannula 05/22 2200 97.8 77 22 154/90 92 Nasal 4.0L Cannula 05/22 2041 77 154/90 Intake & Output 05/23 1600 05/23 0800 05/23 0000 05/22 1600 05/22 0805/22 0000 Intake Total 1692 3518 540 8592 900 1122 Output Total 350 1225 750 800 125 600 Balance 1342 -85 -110 200 775 522 Intake, IV 810 900 400 600 800 900 Intake, Oral 882 240 240 400 100 222 Number 0 0 Bowel Movements Output, Urine 350 1225 750 800 125 600 Physical Exam: General: WD/WN male in NAD; alert and oriented x 3 HEENT: NC/AT, PERRL, EOMI, clear oropharynx Neck: no JVD, no carotid bruit Heart: RRR w/o murmur Lungs: clear bilaterally Abdomen: soft, NT, +ve bowel sounds Extremities: no edema Assessment/Plan Assessment/Plan * No evidence of arrhythmias or heart block. * Would strongly consider an evaluation for vertebralplasty since the patient's pain began acutely after his fall. Continue telemetry? No
[2017-05-23 23:09] VITALS: BP 144/84
[2017-05-24 06:43] VITALS: BP 142/80
[2017-05-24 08:00] LABS: ABSOLUTE BASOPHIL COUNT 0 /CUMM (0.0-0.2); ABSOLUTE EOSINOPHIL COUNT 0.1 /CUMM (0.0-0.7); ABSOLUTE GRANULOCYTE CT 6.6 /CUMM (1.4-6.5); ABSOLUTE LYMPH COUNT 2.4 /CUMM (1.2-3.4); ABSOLUTE MONOCYTE COUNT 1.1 /CUMM (0.10-0.60); BASOPHIL % 0.5 % (0.0-2.0); EOSINOPHIL % 1.3 % (0-5); GRANULOCYTE % 64.2 % (42.2-75.2); HEMATOCRIT 43.3 % (42-52); MEAN CORPUSCULAR HGB 30.4 PG (27.0-31.0); MEAN CORPUSCULAR HGB CONC 33.5 G/DL (33.0-37.0); MEAN CORPUSCULAR VOLUME 90.7 FL (80.0-94.0); MEAN PLATELET VOLUME 8.6 FL (7.4-10.4); PLATELET COUNT 167 /CUMM (130-400); RBC DISTRIBUTION WIDTH 14.1 % (11.5-14.5); RED BLOOD CELL CT 4.78 /CUMM (4.70-6.10); WHITE BLOOD CELL COUNT 10.2 /CUMM (4.8-10.8)
--- NOTE | 2017-05-24 08:12 | PN- Housestaff ---
Brenton Leggett MD,[facility] 05/24/17 0812: Subjective Follow-up For: Syncope Vertebral compression fracture Tele-Events Since Last Visit: SR 56-70 Subjective: Patient visited today, was lying in bed comfortably in no acute distress, was alert and oriented. No fever or chills, no shortness of breathing, no chest pain, no other events. reported improved back pain and was requesting to be discharged. PT work today, was able to go up and down of stairs and walk with 2 L O2. Talked with Dr. Gutiérrez (IR radiologist) who informed there is no need for vertebral augmentation considering chronic nature of the problem. Plan to be discharged today on oxygen. Family was contacted, patient's current condition was reviewed with family, they showed understanding. Review of Systems Constitutional: Reports: see HPI. Objective Last 24 Hrs of Vital Signs/I&O Vital Signs Date Time Temp Pulse Resp B/P B/P Pulse O2 O2 Flow FiO2 Mean Ox Delivery Rate 05/24 1030 75 142/80 05/24 1030 75 142/80 05/24 0643 98.4 75 20 142/80 93 Nasal Cannula 05/24 0000 Nasal 4.0L Cannula 05/23 2309 99.1 90 20 144/84 92 Nasal Cannula 05/23 2218 99.1 05/23 2209 84 144/88 05/23 1551 98.2 85 21 130/70 89 Intake & Output 05/24 1600 05/24 0800 05/24 0000 Intake Total 1000 1022 Output Total 375 500 Balance 625 522 Intake, IV 1000 800 Intake, Oral 222 Output, Urine 375 500 Patient 152 lb Weight Physical Exam General Appearance: Alert, Oriented X3, Cooperative, No Acute Distress, on 2l o2 Skin: No Breakdown, Eryhtema over hand and back Skin Temp/Moisture Exam: Warm/Dry Sepsis Skin Exam (color): Normal for Ethnicity HEENT: Atraumatic, EOMI, Mucous Membr. moist/pink Cardiovascular: Regular Rate, Normal S1, Normal S2 Lungs: Clear to Auscultation Abdomen: Soft, No Tenderness Neurological: Normal Speech, Strength at 5/5 X4 Ext, improved tenderness over back spine. Extremities: No Edema Current Medications: Current Medications Sig/Peggy Start time Last Medication Dose Route Stop Time Status Admin Acetaminophen 1,000 MG Q8P PRN 05/21 1330 AC 05/23 IV 2218 Ampicillin Sodium/ 1,500 MG Q6 05/23 2359 AC 05/24 Sulbactam Sodium IV 1209 Sodium Chloride 50 ML Ampicillin Sodium/ 1,500 MG Q6 05/21 0600 DC 05/23 Sulbactam Sodium IV 1838 Sodium Chloride 100 ML Aspirin 81 MG DAILY 05/24 1000 AC 05/24 PO 1029 Atorvastatin Calcium 40 MG 1700 05/21 1700 AC 05/24 PO 0041 Calcitonin [place] 1 SPRAY DAILY 05/23 1651 AC 05/24 MASHA 1035 Calcium 600 MG BID 05/23 2200 AC 05/24 PO 1030 Cholecalciferol 2,000 IU DAILY 05/24 1000 CAN PO Cholecalciferol 400 IU DAILY 05/23 1624 DC PO Enoxaparin Sodium 40 MG DAILY 05/21 1000 AC 05/24 SC 1032 Ergocalciferol 50,000 IU ONCE ONE 05/24 0915 DC 05/24 PO 05/24 0916 1035 Guaifenesin/ 10 ML Q6P PRN 05/22 1200 AC 05/22 Dextromethorphan PO 1205 Lidocaine 1 PAT DAILY 05/21 0215 AC 05/22 EXT 0841 Lisinopril 20 MG DAILY 05/21 1000 AC 05/24 PO 1030 Metoprolol Tartrate 25 MG BID 05/21 1000 AC 05/24 PO 1030 Oxycodone HCl 5 MG Q6 PRN 05/22 1415 AC 05/24 PO 1033 Phenytoin 100 MG BID 05/21 1000 AC 05/24 PO 1029 Sodium Chloride 1,000 ML Q10H 05/21 0400 DC 05/24 IV 1209 Last 24 Hrs of Lab/[place] Results Last 24 Hrs of Labs/Mics: Laboratory Tests 05/24/17 0710: CBC w Diff NO MAN DIFF REQ, RBC 4.78, MCV 90.7, MCH 30.4, MCHC 33.5, RDW 14.1, MPV 8.6, Gran % 64.2, Lymphocytes % 23.0, Monocytes % 11.0 H, Eosinophils % 1.3 , Basophils % 0.5, Absolute Granulocytes 6.6 H, Absolute Lymphocytes 2.4, Absolute Monocytes 1.1 H, Absolute Eosinophils 0.1, Absolute Basophils 0 05/23/17 1628: PTH Intact 68.7 Assessment/Plan Assessment: Patient is 67 y/o gentleman presented with syncope Was confused after syncope Denied missing medication PMH: seizure disorder noncompliant with dilantin and NSTEMI (2014) s/p stent x3 VS, Ph Ex at admission: Insignificant, on 2L O2 sat>90% Labs at admission: WBC 15.8, CPK 538, phenytoin 4.6, other insignificant Imagings at admission: [facility] CT: - No acute intracranial findings. Mild volume loss with small vessel ischemic changes. - No acute fracture or malalignment of the cervical spine. Mild degenerative changes - Mild anterior wedging and vertebral body height loss to the T7-T9 vertebral bodies. This is age indeterminant, though likely chronic. - Opacification within the inferior segment of the lingula. This is nonspecific, but may be chronic. Follow-up is recommended to assure resolution or stability of this appearance. - No evidence for acute intrathoracic, abdominal nor pelvic injury. -Cholelithiasis without evidence of cholecystitis. - Bilateral adrenal masses. Consider correlation with MRI for further tissue characterization. - Emphysema. Patient was admitted to telemetry floor for management of following conditions: 1. Syncope / Seizure episode Considering low blood level of medication and postictal state most likely seizure 2/2 to medication noncompliance/altered metabolism. Echo: Normal size left ventricle. Normal left ventricular wall thickness. Normal left ventricular ejection fraction visually estimated at > 65%. Abnormal relaxation filling pattern of the left ventricle for age (stage 1 diastolic dysfunction). Normal right ventricular size and function. Normal atrial size. Trace mitral regurgitation. Trace tricuspid regurgitation. Unable to estimate the right ventricular systolic pressure. Trace pulmonic regurgitation. EEG was performed: Normal EEG in the awake and drowsy state. No focal or epileptiform features were noted MRI of the head was done which did not reveal acute pathology: 1. Images are degraded by patient motion artifact on multiple sequences. 2. There is mild diffuse volume loss, and there are sequelae of chronic microvascular ischemic disease. 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 3. There are no acute bleeds or infarcts. Patient was monitored in telemetry floor with neurology and vital signs checked regularly. Aspirin and statin were continued. IV Dilantin was loaded initially and by mouth medication was continued during his stay. Patient was stablized. Patient was instructed to follow with neurology with Blood medication level. Patient needs to follow-up with periodicals clerk regarding diagnosis/management of osteoporosis. 2. Back pain status post fall CtT revealed Mild anterior wedging and vertebral body height loss to T7-9 vertebral bodies which was most likely chronic in nature. MRI of the spine was done: 1. Imaging is degraded by patient motion artifact on multiple sequences. 2. There are old compression fractures of the bodies of T7, T8 and T9, demonstrated on prior imaging. These vertebrae have isointense signal to the adjacent vertebrae, consistent with chronic findings. 3. There is mild increased signal along the superior endplate of T3 with minimal loss of superior vertebral body height consistent with an acute/subacute fracture. 4. There are multilevel spondylitic changes with posterior disc osteophyte complexes and foraminal narrowing in the lower cervical spine and thoracic spine as described above. Pain management with was done IV Tylenol, oxycodone Lidoderm patch. Consideration to respiratory status was made in medication administeration. IR was consulted for benefits of vertebral augmentation, however we were advised that since there fracture in the symptomatic area is chronic in imaging, no intervention is needed at this point. Patient was relatively painless at the time of discharge. Patient was instructed to follow in outpatient in case he continued to have pain, PT evaluation noted home PT with oxygen complement. 3. Acute hypoxic respiratory failure possible h/o emphysema precpirated by aspiration pneumonia Patient did not reported any history of respiratory symptoms, however he was hypoxic. CT chest shows opacification within inferior segment of lingula as well as emphysema which could suggest need for home oxygen as he desaturated during activity. This is of importance as hypoxia could contribute to syncope. TRC evalaution was done. IV and Unasyn was initially administered and changed to oral Augmentin before discharge. Oral Robitussin was administered for cough. 4. h/o CAD History of coronary artery disease status post stent placement; - We continue home medications. 5. incidental finding of bilateral adnexal Mass. Patient needs to follow-up with PCP regarding management. DVT prophylaxis; subcutaneous Lovenox and Alps Patient is full code Heart healthy diet Patient was discharged with recommendations to: Please follow with your PCP within one week of discharge. Please ask your PCP regarding MRI follow up of the abdomen MRI for follow up of incidental bilateral adenexal mass. Please follow with your neurologist within 1 week of discharge. Please do the laboratories as ordered before your appointment with neurologist. Please follow with your periodicals clerk for evaluation and management of the osteoporosis. Please follow with your inspector health care facilities within 1 week of discharge. Please take your medications as ordered. Please measure your blood oxygen and use 02 as instructed. Problem List: 1. Drug-induced osteoporosis 2. Seizure 3. Vertebral collapse Pain Ratin Pain Location: Back Pain Goal: Pain 4 or less Pain Plan: Continue current plan and PO pain meds in out patient Tomorrow's Labs & Rationales: N?A Fannie Hong 05/24/17 1356: Attending MD Review Statement Attending Statement Attending MD Statement: examined this patient, discuss w/resident/PA/CALKER, agreed w/resident/PA/CALKER, reviewed EMR data (avail), discussed with nursing, discussed with case mgmt Attending Assessment/Plan: Pt being dced home in stable condition. Back pain- pt says it is 70% better. So initial plan to do the bone scan was not carried out given the improvement in patients pain. Breakthrough seizures- cont on dilantin. level therapeutic. pt encouraged to be complaint with his seizure meds. Will check oxygen saturation with ambulation to see if he qualifies for oxygen. will arrange for that prior to discharge if he needs it. Pt has underlying emphysema. B/l Adrenal masses- will arrange for outpt f/u and MRI to be followed up with PCP.
[2017-05-24 10:30] VITALS: BP 142/80
[2017-05-24] MEDS ORDERED: AUGMENTIN 875-1 EACH PO ×2 (11:35→15:45)
[2017-05-24] MEDS ORDERED: METOPROLOL SUCC25 M1 PO (13:26)
[2017-05-24] MEDS ORDERED: CALCIUM CARBON500 M2 PO ×2 (13:29→15:50)
[2017-05-24] MEDS ORDERED: LISINOPRIL20 M1 PO (13:29)
[2017-05-24] MEDS ORDERED: ATORVASTATIN CA40 M1 PO (13:30)
[2017-05-24] MEDS ORDERED: VITAMIN D250000 UNIT PO ×2 (13:31→15:46)
--- NOTE | 2017-05-24 13:53 | Patient Discharge Instructions ---
Discharge Instructions General Discharge Information You were seen/treated for: Syncope Vertebral fracture Watch for these problems: Headache, dizziness, lightheadedness, shaking motion, extreme pain, weakness of the limbs, shortness of breathing or worsening of any other symptoms Special Instructions: Please follow with your PCP within one week of discharge. Please ask your PCP regarding MRI follow up of the abdomen MRI for follow up of incidental bilateral adenexal mass. Please follow with your neurologist within 1 week of discharge. Please do the laboratories as ordered before your appointment with neurologist. Please follow with your pattern hand for evaluation and management of the osteoporosis. Please follow with your shactor helper within 1 week of discharge. Please take your medications as ordered. Please measure your blood oxygen and use 02 as instructed. Diet Continue normal diet: No Recommended Diet: Heart Healthy Activity Full Activity/No Limits: No Activity Self Limited: Yes Acute Coronary Syndrome Inclusion Criteria At DC or during hospital stay patient has or had the following: ACS DIAGNOSIS No Discharge Core Measures Meds if any: Prescribed or Continued at Discharge Meds if any: NOT Prescribed or Continued at Discharge Congestive Heart Failure Inclusion Criteria At DC or during hospital stay patient has or had the following: CHF DIAGNOSIS No Discharge Core Measures Meds if any: Prescribed or Continued at Discharge Meds if any: NOT Prescribed or Continued at Discharge Cerebrovascular accident Inclusion Criteria At DC or during hospital stay patient has or had the following: CVA/TIA Diagnosis No Discharge Core Measures Meds if any: Prescribed or Continued at Discharge Meds if any: NOT Prescribed or Continued at Discharge Venous thromboembolism Inclusion Criteria VTE Diagnosis No VTE Type NONE VTE Confirmed by (Test) NONE Discharge Core Measures - Per Current guidelines, there needs to be overlap - treatment for the first 5 days of Warfarin therapy. - If discharged on Warfarin prior to 5 days of - overlap therapy, the patient will need to be - assessed for post discharge needs including - *Post discharge parental anticoagulation - *Warfarin and/or parental anticoagulation education - *Follow up date to check INR post discharge At least 5 days overlap therapy as Inpatient No Meds if any: Prescribed or Continued at Discharge Note: Overlap Therapy is Warfarin and Anticoagulant Meds if any: NOT Prescribed or Continued at Discharge
[2017-05-24] MEDS ORDERED: CALCITONIN-SAL3.7 ML NAS ×2 (14:12→15:45)
[2017-05-24] MEDS ORDERED: ASPIRIN325 M2 PO (14:21)
[2017-05-24] MEDS ORDERED: GUAIFENESIN DM S5 ML PO ×2 (14:24→15:45)
[2017-05-24] MEDS ORDERED: LIDODERM1 EACH EXT ×2 (14:24→15:45)
--- NOTE | 2017-05-24 14:40 | Discharge Summary ---
Visit Information Visit Dates Admission Date: 05/20/17 Discharge Date: 05/24/17 Hospital Course Course Attending Physician: Fannie Hong MD Primary Care Physician: Oliver Harrison MD Hospital Course: Patient is 67 y/o gentleman presented with syncope Was confused after syncope Denied missing medication PMH: seizure disorder noncompliant with dilantin and NSTEMI (2013) s/p stent x3 VS, Ph Ex at admission: Insignificant, on 2L O2 sat>90% Labs at admission: WBC 15.8, CPK 538, phenytoin 4.6, other insignificant Imagings at admission: [facility] CT: - No acute intracranial findings. Mild volume loss with small vessel ischemic changes. - No acute fracture or malalignment of the cervical spine. Mild degenerative changes - Mild anterior wedging and vertebral body height loss to the T7-T9 vertebral bodies. This is age indeterminant, though likely chronic. - Opacification within the inferior segment of the lingula. This is nonspecific, but may be chronic. Follow-up is recommended to assure resolution or stability of this appearance. - No evidence for acute intrathoracic, abdominal nor pelvic injury. -Cholelithiasis without evidence of cholecystitis. - Bilateral adrenal masses. Consider correlation with MRI for further tissue characterization. - Emphysema. Patient was admitted to telemetry floor for management of following conditions: 1. Syncope / Seizure episode Considering low blood level of medication and postictal state most likely seizure 2/2 to medication noncompliance/altered metabolism. Echo: Normal size left ventricle. Normal left ventricular wall thickness. Normal left ventricular ejection fraction visually estimated at > 65%. Abnormal relaxation filling pattern of the left ventricle for age (stage 1 diastolic dysfunction). Normal right ventricular size and function. Normal atrial size. Trace mitral regurgitation. Trace tricuspid regurgitation. Unable to estimate the right ventricular systolic pressure. Trace pulmonic regurgitation. EEG was performed: Normal EEG in the awake and drowsy state. No focal or epileptiform features were noted MRI of the head was done which did not reveal acute pathology: 1. Images are degraded by patient motion artifact on multiple sequences. 2. There is mild diffuse volume loss, and there are sequelae of chronic microvascular ischemic disease. 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 3. There are no acute bleeds or infarcts. Patient was monitored in telemetry floor with neurology and vital signs checked regularly. Aspirin and statin were continued. IV Dilantin was loaded initially and by mouth medication was continued during his stay. Patient was stablized. Patient was instructed to follow with neurology with Blood medication level. Patient needs to follow-up with site operations manager regarding diagnosis/management of osteoporosis. 2. Back pain status post fall CtT revealed Mild anterior wedging and vertebral body height loss to T7-9 vertebral bodies which was most likely chronic in nature. MRI of the spine was done: 1. Imaging is degraded by patient motion artifact on multiple sequences. 2. There are old compression fractures of the bodies of T7, T8 and T9, demonstrated on prior imaging. These vertebrae have isointense signal to the adjacent vertebrae, consistent with chronic findings. 3. There is mild increased signal along the superior endplate of T3 with minimal loss of superior vertebral body height consistent with an acute/subacute fracture. 4. There are multilevel spondylitic changes with posterior disc osteophyte complexes and foraminal narrowing in the lower cervical spine and thoracic spine as described above. Pain management with was done IV Tylenol, oxycodone Lidoderm patch. Consideration to respiratory status was made in medication administeration. IR was consulted for benefits of vertebral augmentation, however we were advised that since there fracture in the symptomatic area is chronic in imaging, no intervention is needed at this point. Patient was relatively painless at the time of discharge. Patient was instructed to follow in outpatient in case he continued to have pain, PT evaluation noted home PT with oxygen complement. 3. Acute hypoxic respiratory failure possible h/o emphysema precpirated by aspiration pneumonia Patient did not reported any history of respiratory symptoms, however he was hypoxic. CT chest shows opacification within inferior segment of lingula as well as emphysema which could suggest need for home oxygen as he desaturated during activity. This is of importance as hypoxia could contribute to syncope. TRC evalaution was done. IV and Unasyn was initially administered and changed to oral Augmentin before discharge. Oral Robitussin was administered for cough. 4. h/o CAD History of coronary artery disease status post stent placement; - We continue home medications. 5. incidental finding of bilateral adnexal Mass. Patient needs to follow-up with PCP regarding management. DVT prophylaxis was done with subcutaneous Lovenox and Alps Patient was full code Heart healthy diet Allergies: Coded Allergies: NO KNOWN ALLERGIES (04/22/14) Disposition Summary Disposition Principal Diagnosis: Syncope / Seizure episode Additional Diagnosis: - Back pain status post fall, vertebral compression fracture - Acute hypoxic respiratory failure: possible h/o emphysema precpirated by aspiration pneumonia - Incidental finding of bilateral adnexal Mass. Discharge Disposition: home health services Discharge Instructions General Discharge Information Code Status: Full Code Patient's Diet: Heart healthy Patient's Activity: Self-limited, home PT, walking with ambulation and oxygen supplement Follow-Up Instructions/Appts: Please follow with your PCP within one week of discharge. Please ask your PCP regarding MRI follow up of the abdomen MRI for follow up of incidental bilateral adenexal mass. Please follow with your neurologist within 1 week of discharge. Please do the laboratories as ordered before your appointment with neurologist. Please follow with your site operations manager for evaluation and management of the osteoporosis. Please follow with your commercial loan administrator within 1 week of discharge. Please take your medications as ordered. Please measure your blood oxygen and use 02 as instructed. Medications at Discharge Discharge Medications: Continue taking these medications: Phenytoin (Dilantin) 100 MG CAPSULE 1 Capsule ORAL TWICE DAILY Qty = 90 Comments: Last Taken:05/24/17 Time:9am Metoprolol Succinate (Metoprolol Succinate) 25 MG TAB 1 Tablet ORAL TWICE DAILY Comments: Last Taken:05/24/17 Time:9am Lisinopril (Lisinopril) 20 MG TABLET 1 Tablet ORAL DAILY Comments: Last Taken:05/24/17 Time:9am Atorvastatin Calcium (Atorvastatin Calcium) 40 MG TABLET 1 Tablet ORAL DAILY Comments: Last Taken:05/24/17 Time:1am Aspirin (Aspirin*) 325 MG TABLET 1 Tablet ORAL DAILY Qty = 30 Comments: Last Taken:05/24/17 Time:9am Start taking the following new medications: Lidocaine (Lidoderm) 5 % ADH..PATCH 1 Patch ON SKIN DAILY Qty = 10 No Refills Instructions: . Comments: Last Taken:05/22/17 Time:12pm Calcitonin,[place],Synthetic (Calcitonin-[place]) 200 UNIT/SPRAY SPRAY.PUMP 1 [place] In the nose DAILY Qty = 1 No Refills Instructions: 1 spray in 1 nostril and altenate nostrils every other day. Comments: Last Taken:05/26/17 Time:9am Guaifenesin/Dextromethorphan (Guaifenesin Dm Syrup) 100 MG-10 MG/5 ML SYRUP 5 Milliliters ORAL EVERY SIX HOURS NEEDED as needed for COUGH Qty = 1 No Refills Instructions: for 5 days Comments: Last Taken:05/22/17 Time:12pm Amoxicillin/Potassium Clav (Augmentin 875-125 Tablet) 875 MG-125 MG TABLET 1 Tablet ORAL TWICE DAILY Qty = 8 No Refills Comments: begin taking tonight, 05/24/17 @ bedtime Ergocalciferol (Vitamin D2) (Vitamin D2) 50,000 UNIT CAPSULE 1 Capsule ORAL Once a Week Qty = 7 No Refills Instructions: start from 06/05/2017 for 7 weeks. Comments: Last Taken:05/24/17 Time:9am Oxycodone HCl (Oxycodone HCl) 5 MG TABLET 1 Tablet ORAL EVERY SIX HOURS NEEDED as needed for SEVERE PAIN Qty = 9 No Refills Instructions: . Comments: Last Taken:05/24/17 Time:9am Calcium Carbonate (Calcium Carbonate) 500 MG CALCIUM (1,250 MG) TABLET 600 Milligram ORAL TWICE DAILY Qty = 60 No Refills Instructions: please do NOT take it with dilantin Comments: Last Taken:05/24/17 Time:9am Copies To: Jennifer ARSHAD,Balbir Albrecht; Christy ARSHAD,Oliver Stafford; Domi ARSHAD,Ector Munoz; Orestes ARSHAD PHD,Simone Ellison Attending MD Review Statement Documenting Attending: Gely ARSHAD,Fannie Ellison Other Findings: agree with the above dc plan. Please see my separate attending note for more details.
[2017-05-24] MEDS ORDERED: OXYCODONE HCL5 M1 PO ×2 (15:10→15:46)
== END 2017-05-24 18:33 | disposition home health service (06) | DRG 100 ==
LOC: ERH 19:07 → 1NO 21:28 → ERHI 21:28 → ENRESERV 05-21 02:21 → 1NO 05-21 02:51 → ENTRNSPT 05-24 18:15 → 1NO 05-24 18:33 → CMPTRNSPT 05-24 18:51
PROVIDERS: Emergency Medicine; Radiology Vascular & Interventional Radiology
DX: R56.9 Unspecified convulsions (principal); J69.0 Pneumonitis due to inhalation of food and vomit; J96.01 Acute respiratory failure with hypoxia; M62.82 Rhabdomyolysis; M80.88XA Other osteoporosis with current pathological fracture, vertebra(e), initial encounter for fracture; S01.512A Laceration without foreign body of oral cavity, initial encounter; Z91.14 Patient's other noncompliance with medication regimen; I25.2 Old myocardial infarction; I25.10 Atherosclerotic heart disease of native coronary artery without angina pectoris; Z87.891 Personal history of nicotine dependence; W18.39XA Other fall on same level, initial encounter; R22.9 Localized swelling, mass and lump, unspecified
CPT/HCPCS: 1NSP; 70551; 72146; ERO; 36415; 71045; 74177; 80307; 81001; 82436; 87040; 87070; 87086; 87804; 87804-59; 93005; 93010; 93306; 95816; 96365; 96375; 97110-GO; 97116-GO; 97161-GP; J0131; J0630; J1165; J1650; J1885; J3490; J7040